=== PATIENT | female | born 1950 | race Hispanic/Latino ===

== ENCOUNTER 2020-03-04 09:18 | Emergency (ER) | payer MEDICAID ==
[2020-03-04 09:40] VITALS: BP 135/93
[2020-03-04 10:34] LABS: Bilirubin,Urine NEG (Negative); Blood,Urine NEG (Negative); Color,Urine Yellow (Yellow); Mucus,Urine FEW /HPF
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
[2020-03-04 12:47] LABS: Blood Urea Nitrogen 14 mg/dL (7-17); Calcium 9.6 mg/dL (8.4-10.2); Hemolysis Index 7
[2020-03-04 12:48] LABS: BUN/Creatinine Ratio 20
== END 2020-03-04 13:25 | disposition home or self-care (01) ==
LOC: ED 09:18
DX: N39.0 Urinary tract infection, site not specified (principal); R31.9 Hematuria, unspecified; F17.200 Nicotine dependence, unspecified, uncomplicated; Z98.890 Other specified postprocedural states; Z79.899 Other long term (current) drug therapy; Z88.8 Allergy status to other drugs, medicaments and biological substances
CPT/HCPCS: 36415; 80048; 81001; 87086; 99283

== ENCOUNTER 2020-04-12 10:11 | Emergency (ER) | payer MEDICARE ==
[2020-04-12 11:11] VITALS: BP 136/61
--- NOTE | 2020-04-12 11:11 | Emergency Department Report ---
Blank Doc - Documentation Documentation: 69-year-old female that presents with left hip pain and right shoulder pain. Also c/o UTI symptoms. This initial assessment/diagnostic orders/clinical plan/treatment(s) is/are subject to change based on patient's health status, clinical progression and re- assessment by fellow clinical providers in the ED. Further treatment and workup at subsequent clinical providers discretion. Patient/guardians urged not to elope from the ED as their condition may be serious if not clinically assessed and managed. Initial orders include: 1- Patient sent to [facility] for further evaluation and treatment 2- xrays 3- UA
--- NOTE | 2020-04-12 12:03 | XRay Report ---
RIGHT SHOULDER 4 VIEWS INDICATION / CLINICAL INFORMATION: right shoulder pain. COMPARISON: None available. FINDINGS: Reverse right shoulder arthroplasty with normal alignment. No other significant skeletal abnormality Signer Name: Fernando Glover MD FACAmie Signed: 04/12/2020 11:59 AM Workstation Name: [id number]
--- NOTE | 2020-04-12 12:05 | XRay Report ---
LEFT HIP 2 VIEWS INDICATION / CLINICAL INFORMATION: left hip pain. COMPARISON: None available. FINDINGS: Moderately advanced degenerative change in left hip joint with narrowing of the joint space, subchond ral cyst formation and osteophyte formation. No other significant skeletal abnormality. Signer Name: Fernando Glover MD FACAmie Signed: 04/12/2020 12:01 PM Workstation Name: [id number]
[2020-04-12] MEDS ORDERED: ACETAMINOPHEN W/CODEINE 300-30 MG TAB PO ONE (13:10)
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
== END 2020-04-12 13:29 | disposition home or self-care (01) ==
LOC: ED 10:11
DX: M25.511 Pain in right shoulder (principal); M54.5 Low back pain; M25.552 Pain in left hip; F17.200 Nicotine dependence, unspecified, uncomplicated; Z79.899 Other long term (current) drug therapy; Z90.710 Acquired absence of both cervix and uterus; Z98.890 Other specified postprocedural states; Z88.8 Allergy status to other drugs, medicaments and biological substances; Y08.89XA Assault by other specified means, initial encounter; Y93.89 Activity, other specified; Y92.89 Other specified places as the place of occurrence of the external cause; Y99.8 Other external cause status
CPT/HCPCS: 99283

== ENCOUNTER 2020-11-07 20:10 | Emergency (ER) | payer MEDICAID, MEDICARE ==
[2020-11-07 23:09] VITALS: BP 103/71
[2020-11-08] MEDS ORDERED: ACETAMINOPHEN 325 MG TAB PO ONE (00:06)
--- NOTE | 2020-11-08 00:45 | XRay Report ---
CHEST 1 VIEW INDICATION: COUGH; AMS. COMPARISON: None. FINDINGS: Support devices: None. Heart: Normal. Lungs/Pleura: No acute pulmonary or pleural findings. Healed lateral left lower rib fracture is noted. Reverse right shoulder arthroplasty is noted. IMPRESSION: 1. No acute findings. Signer Name: Vineet Thomas MD Signed: 11/08/2020 12:40 AM Workstation Name: [id number]
[2020-11-08 01:00] LABS: Basophils # (Auto) 0.1 K/mm3 (0.0-0.1); Basophils % (Auto) 1.2 % (0.0-1.8); Eosinophils # (Auto) 0.1 K/mm3 (0.0-0.4); Eosinophils % (Auto) 1.2 % (0.0-4.3); Hematocrit 39.5 % (30.3-42.9); Hemoglobin 13.5 gm/dl (10.1-14.3); Lymphocytes # (Auto) 3.4 K/mm3 (1.2-5.4); Lymphocytes % (Auto) 33.2 % (13.4-35.0); Mean Corpuscular HGB Conc 34 % (30-34); Mean Corpuscular Volume 96 fl (79-97); Platelet Count 277 K/mm3 (140-440); Red Blood Count 4.11 M/mm3 (3.65-5.03); Red Cell Distribution Width 14.8 % (13.2-15.2)
--- NOTE | 2020-11-08 01:07 | Cat Scan Report ---
CT HEAD WITHOUT CONTRAST INDICATION: AMS. TECHNIQUE: All CT scans at this location are performed using CT dose reduction for ALARA by means of automated e xposure control. COMPARISON: None available. FINDINGS: HEMORRHAGE: None. EXTRA-AXIAL SPACES: Normal in size and morphology for the patient's age. VENTRICULAR SYSTEM: Normal in size and morphology for the patient's age. BRAIN PARENCHYMA: No acute findings. There is mild diffuse atrophy. MIDLINE SHIFT OR HERNIATION: None. ORBITS: Normal as visualized. SOFT TISSUES OF HEAD: Normal. CALVARIUM: Normal. VISUALIZED PARANASAL SINUSES AND MASTOID AIR CELLS: There is mild mucosal thickening in the right max illary sinus. No air-fluid levels. Postsurgical changes are seen at the medial parra of the maxillary sinuses. ADDITIONAL FINDINGS: None. IMPRESSION: 1. No acute intracranial abnormality. Signer Name: Vineet Thomas MD Signed: 11/08/2020 1:03 AM Workstation Name: [id number]
[2020-11-08 01:17] LABS: Alanine Aminotransferase 12 units/L (7-56); Albumin 4.4 g/dL (3.9-5); BUN/Creatinine Ratio 19; Blood Urea Nitrogen 17 mg/dL (7-17); Calcium 9.1 mg/dL (8.4-10.2); Hemolysis Index 27
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
== END 2020-11-08 03:13 | disposition home or self-care (01) ==
LOC: ED 20:10
DX: S09.90XA Unspecified injury of head, initial encounter (principal); K08.89 Other specified disorders of teeth and supporting structures; F32.9 Major depressive disorder, single episode, unspecified; J44.9 Chronic obstructive pulmonary disease, unspecified; F03.90 Unspecified dementia, unspecified severity, without behavioral disturbance, psychotic disturbance, mood disturbance, and anxiety; F17.200 Nicotine dependence, unspecified, uncomplicated; Z98.890 Other specified postprocedural states; Z79.899 Other long term (current) drug therapy; Z88.8 Allergy status to other drugs, medicaments and biological substances; W19.XXXA Unspecified fall, initial encounter; Y93.89 Activity, other specified; Y92.89 Other specified places as the place of occurrence of the external cause; Y99.8 Other external cause status
CPT/HCPCS: 36415; 70450; 71045; 80053; 85025

== ENCOUNTER 2020-12-16 14:21 | Emergency (ER) | payer MEDICARE ==
[2020-12-16 15:41] LABS: Basophils # (Auto) 0.1 K/mm3 (0.0-0.1); Basophils % (Auto) 0.9 % (0.0-1.8); Eosinophils % (Auto) 0.2 % (0.0-4.3); Hematocrit 37.2 % (30.3-42.9); Hemoglobin 12.7 gm/dl (10.1-14.3); Lymphocytes # (Auto) 1.9 K/mm3 (1.2-5.4); Lymphocytes % (Auto) 28.2 % (13.4-35.0); Mean Corpuscular HGB Conc 34 % (30-34); Mean Corpuscular Volume 97 fl (79-97); Monocytes # (Auto) 0.5 K/mm3 (0.0-0.8); Monocytes % (Auto) 8.2 % (0.0-7.3); Platelet Count 243 K/mm3 (140-440); Red Blood Count 3.85 M/mm3 (3.65-5.03); Red Cell Distribution Width 14.2 % (13.2-15.2)
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
[2020-12-16 16:01] LABS: Alanine Aminotransferase 19 units/L (7-56); Albumin 4.3 g/dL (3.9-5); Blood Urea Nitrogen 13 mg/dL (7-17); Calcium 8.9 mg/dL (8.4-10.2); Hemolysis Index 5
[2020-12-16 16:02] LABS: BUN/Creatinine Ratio 22
[2020-12-16 16:30] LABS: Amphetamine Screen,Urine Negative; Benzodiazepines Screen,Urine Negative; Cocaine Screen,Urine Negative; Methadone Screen,Urine Negative; Opiate Screen,Urine Negative
[2020-12-16 16:32] LABS: Bacteria,Urine 1+ /HPF (Negative); Bilirubin,Urine NEG (Negative); Blood,Urine NEG (Negative); Color,Urine Amber (Yellow); Mucus,Urine FEW /HPF; Protein,Urine <15 mg/dL mg/dL (Negative)
[2020-12-16 16:41] LABS: Cannabinoid Screen,Urine Positive
[2020-12-16] MEDS ORDERED: POTASSIUM CHLORIDE ER 20 MEQ TAB PO ONE (16:41)
[2020-12-16] MEDS: POTASSIUM CHLORIDE ER 20 MEQ TAB PO SCH (22:10)
--- NOTE | 2020-12-17 10:30 | Consultation ---
History of Present Illness - Reason for Consult Consult date: 12/17/20 Reason for consult: paranoia - History of Present Psychiatric Illness Per ER Note: Chief complaint: "I know if I go back there that they are going to kill me." HPI: This is a 62-year-old female with history of dementia, anxiety disorder depression, breast cancer, chronic back pain who presents with paranoia and anxiety. She currently lives in a boarding house. She feels as if that something or someone at the boarding house is making her sick. Patient denies any physical complaints. According to electronic medical record, patient was evaluated emergency department. Her requested medication to address her dementia symptoms which included digging dirt outside and pulling carpet at the home. The patient was seen today, she is paranoid. The patient says she came here because she was sick and states "I'm now much sicker being here." She says "I'm losing weight because they are contaminating the food and the floors." She then says "just like you are poisoning everything." She says "I don't like filth." The patient says where she came from "was filth with roaches taking over your food." She also says she "smoked some crack about a week ago there." She verbalizes feeling depressed. The patient says "the police came and offered me to go to a correction but they will only keep me two days." PAST PSYCHIATRIC HISTORY Diagnoses:n/a Suicide attempts or Self-harm behavior: n/a Prior psychiatric hospitalizations: n/a Substance Abuse history: n/a Previous psychiatric medications tried: n/a Outpatient treatment: n/a PAST MEDICAL HISTORY: n/a Family Psychiatric History: None reported or documented SOCIAL HISTORY Marital Status: n/a Living Arrangements: homeless Employment Status: unemployed Access to guns/weapons: n/a Education:high school diploma History of Abuse: n/a Legal History: n/a REVIEW OF SYSTEMS ROS cannot be reliably obtained from the patient due to his mental state MENTAL STATUS EXAMINATION General Appearance and Behavior: Age appropriate, good hygiene, not wearing appropriate clothes, good eye contact, cooperative polite with questioning. Cooperation: Participating/engaged Psychomotor Behavior: Psychomotor agitation Mood: Good Affect and affective range: euthymic, euphoric Thought Process:Circumstantial, Illogical, Thought Content: Flight of ideas, Illogical, Grandiose, Speech: pressured, loud volume at times Intellectual Functioning: Average Suicidal Ideation: Denies SI Homicidal Ideation: Denies HIl Impulse Control: Impaired Insight and Judgment: Limited insight and judgment Memory: Normal, Attention: Divided attention impaired Orientation: Alert, oriented, Assessment and Plan (1) Dementia with Behavioral Disturbance Current Visit: Yes Status: Acute Treatment Plan MEDICATIONS: Risperidone 0.25mg po BID, Remeron 7.5mg po qhs Risks, benefits and alternatives of medications discussed with the patient, questions answered and consent obtained from patient. PSYCHOTHERAPY: Supportive psychotherapy provided MEDICAL: Per primary team DELIRIUM PRECAUTIONS: Please re-orient patient frequently, keep lights on during the day, and minimize benzodiazepines and opiates as these medications could worsen patient's confusion. CASER: DISPOSITION: Recommend acute inpatient [facility] Case discussed with Dr. Head who agrees with current disposition FOLLOW-UP: Will follow Thank you for the consult. Please contact with any questions and/or concerns. Medications and Allergies Allergies Allergy/AdvReac Type Severity Reaction Status Date / Time ketorolac [From Toradol] Allergy Hives Verified 12/16/20 15:42 loracarbef [From Lorabid] Allergy Hives Verified 12/16/20 15:42 pentazocine [From Talwin] Allergy Hives Verified 12/16/20 15:42 Home Medications Medication Instructions Recorded Confirmed Last Taken Type No Known Home Medications [No 12/16/20 12/16/20 Unknown History Reported Home Medications] Active Meds: Active Medications Potassium Chloride (Potassium Chloride Er 20 Meq Tab) 40 meq PO BID ALVARO Last Admin: 12/16/20 22:10 Dose: Not Given Documented by: Mental Status Exam - Vital signs Last Vital Signs Temp 98.0 F 12/17/20 08:15 Pulse 83 12/17/20 08:15 Resp 20 12/17/20 08:15 BP 129/77 12/17/20 08:15 Pulse Ox 97 12/17/20 08:15 Results Result Diagrams: 12/16/20 15:28 12/16/20 15:28 Abnormal lab results 12/16/20 12/16/20 12/16/20 Range/Units 15:28 15:28 15:28 MCH 33 H (28-32) pg [place] % (Auto) 8.2 H (0.0-7.3) % Potassium (3.6-5.0) mmol/L Salicylates < 0.3 L (2.8-20.0) mg/dL Acetaminophen 5.0 L (10.0-30.0) ug/mL 12/16/20 Range/Units 15:28 MCH (28-32) pg [place] % (Auto) (0.0-7.3) % Potassium 2.7 L* (3.6-5.0) mmol/L Salicylates (2.8-20.0) mg/dL Acetaminophen (10.0-30.0) ug/mL All other labs normal.
[2020-12-17] MEDS: POTASSIUM CHLORIDE ER 20 MEQ TAB PO SCH ×2 (10:45→22:22)
[2020-12-17] MEDS: risperiDONE 0.25 MG TAB PO SCH ×2 (11:10→22:23)
[2020-12-17 20:20] VITALS: BP 152/75
[2020-12-17] MEDS ORDERED: MIRTAZAPINE 15 MG TAB PO SCH (22:00)
== END 2020-12-17 22:23 | disposition other institution (70) ==
LOC: ED 14:21
DX: F23 Brief psychotic disorder (principal); J44.9 Chronic obstructive pulmonary disease, unspecified; F03.90 Unspecified dementia, unspecified severity, without behavioral disturbance, psychotic disturbance, mood disturbance, and anxiety; F17.200 Nicotine dependence, unspecified, uncomplicated; Z98.890 Other specified postprocedural states; Z88.8 Allergy status to other drugs, medicaments and biological substances
CPT/HCPCS: 36415; 80053; 80307; 80320; 81001; 84132; 85025; G0480; U0003

== ENCOUNTER 2020-12-17 20:30 | Inpatient (IN) | payer MEDICARE ==
[2020-12-17 23:33] LABS: Basophils # (Auto) 0.1 K/mm3 (0.0-0.1); Eosinophils # (Auto) 0.1 K/mm3 (0.0-0.4); Eosinophils % (Auto) 1.5 % (0.0-4.3); Hematocrit 36.4 % (30.3-42.9); Hemoglobin 12.3 gm/dl (10.1-14.3); Lymphocytes # (Auto) 2.1 K/mm3 (1.2-5.4); Lymphocytes % (Auto) 37.7 % (13.4-35.0); Mean Corpuscular HGB Conc 34 % (30-34); Mean Corpuscular Volume 98 fl (79-97); Monocytes # (Auto) 0.4 K/mm3 (0.0-0.8); Monocytes % (Auto) 7.6 % (0.0-7.3); Platelet Count 222 K/mm3 (140-440); Red Blood Count 3.72 M/mm3 (3.65-5.03)
[2020-12-17 23:55] LABS: Alanine Aminotransferase 14 units/L (7-56); Albumin 3.9 g/dL (3.9-5); Blood Urea Nitrogen 13 mg/dL (7-17); Calcium 9.3 mg/dL (8.4-10.2); Hemolysis Index 2
[2020-12-18 00:13] LABS: BUN/Creatinine Ratio 19
--- NOTE | 2020-12-18 10:40 | History and Physical Report ---
GP History & Physical - History of Present Illness Date of admission: 12/17/20 Date of Examination: 12/18/20 Reason for Admission: Failure of Outpatient Treatment, Unable to care for self History of Present Illness: Per ER Note: Chief complaint: "I know if I go back there that they are going to kill me." HPI: This is a 62-year-old female with history of dementia, anxiety disorder depression, breast cancer, chronic back pain who presents with paranoia and anxiety. She currently lives in a boarding house. She feels as if that something or someone at the boarding house is making her sick. Patient denies any physical complaints. According to electronic medical record, patient was evaluated emergency department. Her requested medication to address her dementia symptoms which included digging dirt outside and pulling carpet at the home. Laura Suarez is a patient I first rounded on in the ER. At that time the patient was paranoid and disorganized thoughts, and thought people were poisoning her food and the floors. During my assessment today, the patient says she actually "feels better." She is still paranoids and delusional. She is talking about the "filth, trash, and contamination" of the place she was living. She also asks about the food here and what's in it. The patient denies SI/HI or hallucinations of any kind. PAST PSYCHIATRIC HISTORY Diagnoses: Denies Suicide attempts or Self-harm behavior: Denies Prior psychiatric hospitalizations: Denies Substance Abuse history: States she tried crack Previous psychiatric medications tried: could not recall Outpatient treatment: yes PAST MEDICAL HISTORY: None reported Family Psychiatric History: None reported or documented SOCIAL HISTORY Marital Status: Single Living Arrangements: senior living Employment Status: disabled Access to guns/weapons: denies Education:high school diploma History of Abuse: Denies Legal History: Denies REVIEW OF SYSTEMS Constitutional: Negative for weight loss ENT: Negative for stridor Respiratory: Negative for cough or hemoptysis All other systems reviewed and are negative MENTAL STATUS EXAMINATION General Appearance and Behavior: Age appropriate, good hygiene, not wearing appropriate clothes, good eye contact, cooperative polite with questioning. Cooperation: Participating/engaged Psychomotor Behavior: Psychomotor agitation Mood: Good Affect and affective range: euthymic, euphoric Thought Process:Circumstantial, Illogical, Thought Content: Flight of ideas, Illogical, Grandiose, Speech: pressured, loud volume at times Intellectual Functioning: Average Suicidal Ideation: Denies SI Homicidal Ideation: Denies HIl Impulse Control: Impaired Insight and Judgment: Limited insight and judgment Memory: Normal, Attention: Divided attention impaired Orientation: Alert, oriented, Assessment and Plan (1) Dementia with Behavioral Disturbance Current Visit: Yes Status: Acute Treatment Plan Patient admitted for inpatient psychiatric evaluation, medication adjustment and close monitoring The patient's behavior, mood, sleep and appetite will be closely monitored. Patient enrolled in individual and group therapeutic sessions and encouraged to attend. Patient provided with a safe and structured environment. Patient's physical health needs will be addressed by the Hospitalist. Hospitalist Consulted Labs including CBC, CMP, Lipid profile and Hemoglobin A1C levels ordered for baseline reference Social Assessment will be completed and the Rn Vascular will work with patient and family to ensure a suitable and safe disposition Medication adjustment will be made as clinically indicated Continued home medications Started meds that was started in ER Remeron 7.5 qhs Risperidone 0.25mg po BID Usual Wellness [employer]/Preservation: - Start Trazodone 50 mg po QHS & 50 mg po QHS PRN between 10 PM & 2 AM for insomnia - Start Melatonin 5 mg po QHS to promote circadian rhythm - Start [place]-3 for brain health, reduce impulsivity, and as adjunctive treatment for mood disorder, continue upon discharge given overall benefits. - Start B1 prophylaxis with 200 mg po for 5 days The patient agreed on the treatment plan, understood the risk, benefit, alternative treatment, potential consequence of no treatment, and gave informed consent. Estimated days: 5 Post hospital care: primary care provider, psychiatric provider Legal Status: Voluntary Reaction to Hospitalization: Accepting Medications and Allergies Allergies Allergy/AdvReac Type Severity Reaction Status Date / Time ketorolac [From Toradol] Allergy Hives Verified 12/16/20 15:42 loracarbef [From Lorabid] Allergy Hives Verified 12/16/20 15:42 pentazocine [From Talwin] Allergy Hives Verified 12/16/20 15:42 Home Medications Medication Instructions Recorded Confirmed Last Taken Type Cyclobenzaprine [Flexeril 10 MG 5 mg PO DAILY PRN 12/18/20 12/18/20 Unknown History TAB] Divalproex Dr [Tato Olmos] 500 mg PO DAILY 12/18/20 12/18/20 Unknown History Meloxicam [Mobic] 7.5 mg PO DAILY PRN 12/18/20 12/18/20 Unknown History Mirtazapine 7.5 mg PO HS 12/18/20 12/18/20 Unknown History hydroCHLOROthiazide 12.5 mg PO DAILY 12/18/20 12/18/20 Unknown History [Hydrochlorothiazide] risperiDONE [RisperDAL] 0.25 mg PO BID 12/18/20 12/18/20 Unknown History Results - Results Labs/Vitals: Laboratory Last Values WBC 5.7 K/mm3 (4.5-11.0) 12/17/20 23:10 RBC 3.72 M/mm3 (3.65-5.03) 12/17/20 23:10 Hgb 12.3 gm/dl (10.1-14.3) 12/17/20 23:10 Hct 36.4 % (30.3-42.9) 12/17/20 23:10 MCV 98 fl (79-97) H 12/17/20 23:10 MCH 33 pg (28-32) H 12/17/20 23:10 MCHC 34 % (30-34) 12/17/20 23:10 RDW 15.0 % (13.2-15.2) 12/17/20 23:10 Plt Count 222 K/mm3 (140-440) 12/17/20 23:10 Lymph % (Auto) 37.7 % (13.4-35.0) H 12/17/20 23:10 [place] % (Auto) 7.6 % (0.0-7.3) H 12/17/20 23:10 Eos % (Auto) 1.5 % (0.0-4.3) 12/17/20 23:10 Baso % (Auto) 1.0 % (0.0-1.8) 12/17/20 23:10 Lymph # (Auto) 2.1 K/mm3 (1.2-5.4) 12/17/20 23:10 [place] # (Auto) 0.4 K/mm3 (0.0-0.8) 12/17/20 23:10 Eos # (Auto) 0.1 K/mm3 (0.0-0.4) 12/17/20 23:10 Baso # (Auto) 0.1 K/mm3 (0.0-0.1) 12/17/20 23:10 Seg Neutrophils % 52.2 % (40.0-70.0) 12/17/20 23:10 Seg Neutrophils # 3.0 K/mm3 (1.8-7.7) 12/17/20 23:10 Sodium 146 mmol/L (137-145) H 12/17/20 23:10 Potassium 3.5 mmol/L (3.6-5.0) L 12/17/20 23:10 Chloride 106.8 mmol/L (98-107) 12/17/20 23:10 Carbon Dioxide 31 mmol/L (22-30) H 12/17/20 23:10 Anion Gap 12 mmol/L 12/17/20 23:10 BUN 13 mg/dL (7-17) 12/17/20 23:10 Creatinine 0.7 mg/dL (0.6-1.2) 12/17/20 23:10 Estimated GFR > 60 ml/min 12/17/20 23:10 BUN/Creatinine Ratio 19 % 12/17/20 23:10 Glucose 130 mg/dL (65-100) H 12/17/20 23:10 POC Glucose 119 mg/dL (70-105) H 12/18/20 00:18 Hemoglobin A1c 5.2 % (4-6) 12/17/20 23:10 Calcium 9.3 mg/dL (8.4-10.2) 12/17/20 23:10 Total Bilirubin 0.20 mg/dL (0.1-1.2) 12/17/20 23:10 AST 19 units/L (5-40) 12/17/20 23:10 ALT 14 units/L (7-56) 12/17/20 23:10 Alkaline Phosphatase 90 units/L (35-129) 12/17/20 23:10 Total Protein 6.3 g/dL (6.3-8.2) 12/17/20 23:10 Albumin 3.9 g/dL (3.9-5) 12/17/20 23:10 Albumin/Globulin Ratio 1.6 % 12/17/20 23:10 TSH 0.691 mlU/mL (0.270-4.200) 12/17/20 23:10 Valproic Acid < 2.8 ug/mL (50-100) L 12/17/20 23:10 Last Vital Signs Temp 98.5 F 12/18/20 08:49 Pulse 85 12/18/20 08:49 Resp 16 12/18/20 08:49 BP 103/61 12/18/20 08:49 Pulse Ox 96 12/18/20 08:49 Physical Examination - Constitutional Vitals: Vital Signs Temp Pulse Resp BP Pulse Ox 98.5 F 85 16 103/61 96 12/18/20 08:49 12/18/20 08:49 12/18/20 08:49 12/18/20 08:49 12/18/20 08:49 Temperature -Last 24 Hours Temperature 98.5 F Temperature 98.4 F Mental Status Exam - Vital signs Last Vital Signs Temp 98.5 F 12/18/20 08:49 Pulse 85 12/18/20 08:49 Resp 16 12/18/20 08:49 BP 103/61 12/18/20 08:49 Pulse Ox 96 12/18/20 08:49 Physician Certification - Certification Statement Physician Certification Statement: This is an acknowledgement statement that LAURA SUAREZ is a 70 year old F who requires inpatient psychiatric admission for treatment which could reasonably be expected to improve the patient's condition for Estimated period of time patient will need to remain in the hospital: [ ] Plan for post-hospital care: [ ]
[2020-12-18] MEDS ORDERED: MELOXICAM 7.5 MG TAB PO PRN (11:00)
[2020-12-18] MEDS ORDERED: hydroCHLOROthiazide 12.5 MG CAP PO SCH (11:00)
[2020-12-18] MEDS ORDERED: CYCLOBENZAPRINE 10 MG TAB PO PRN (11:00)
[2020-12-18] MEDS: DIVALPROEX DR 500 MG TAB PO SCH (12:00)
[2020-12-18] MEDS: risperiDONE 0.25 MG TAB PO SCH ×2 (12:00→21:31)
[2020-12-18] MEDS ORDERED: POTASSIUM CHLORIDE ER 20 MEQ TAB PO ONE (20:59)
--- NOTE | 2020-12-18 21:01 | Consultation ---
History of Present Illness - Reason for Consult Consult date: 12/18/20 Medical management Requesting physician: KAYY GUERRERO - History of Present Illness 62-year-old female with history of severe anxiety disorder, depression, hypertension, low back pain and neck pain comes in for severe anxiety and paranoia. Patient lives in a boarding home. No physical complaints other than lower back pain. Her has requested medications for her dementia and severe anxiety and paranoia. Patient was apparently digging dirt outside and pulling carpet at home. Patient feels better today and less paranoia. No suicidal or homicidal thoughts Past History Past Medical History: hypertension, other (Psychosis and generalized anxiety disorder, low back pain and dementia) Past Surgical History: No surgical history Social history: lives with family, full code Family history: hypertension Medications and Allergies Allergies Allergy/AdvReac Type Severity Reaction Status Date / Time ketorolac [From Toradol] Allergy Hives Verified 12/16/20 15:42 loracarbef [From Lorabid] Allergy Hives Verified 12/16/20 15:42 pentazocine [From Talwin] Allergy Hives Verified 12/16/20 15:42 Home Medications Medication Instructions Recorded Confirmed Last Taken Type Cyclobenzaprine [Flexeril 10 MG 5 mg PO DAILY PRN 12/18/20 12/18/20 Unknown History TAB] Divalproex Dr [Depakote Dr] 500 mg PO DAILY 12/18/20 12/18/20 Unknown History Meloxicam [Mobic] 7.5 mg PO DAILY PRN 12/18/20 12/18/20 Unknown History Mirtazapine 7.5 mg PO HS 12/18/20 12/18/20 Unknown History hydroCHLOROthiazide 12.5 mg PO DAILY 12/18/20 12/18/20 Unknown History [Hydrochlorothiazide] risperiDONE [RisperDAL] 0.25 mg PO BID 12/18/20 12/18/20 Unknown History Active Meds: Active Medications Cyclobenzaprine HCl (Cyclobenzaprine 10 Mg Tab) 5 mg PO DAILY PRN PRN Reason: Muscle Spasm Divalproex Sodium (Divalproex Dr 500 Mg Tab) 500 mg PO DAILY [facility] Last Admin: 12/18/20 12:00 Dose: 500 mg Documented by: Hydrochlorothiazide (Hydrochlorothiazide 12.5 Mg Cap) 12.5 mg PO DAILY [facility] Last Admin: 12/18/20 12:00 Dose: 12.5 mg Documented by: Meloxicam (Meloxicam 7.5 Mg Tab) 7.5 mg PO DAILY PRN PRN Reason: Muscle Spasm Mirtazapine (Mirtazapine 15 Mg Tab) 7.5 mg PO QHS [facility] Risperidone (Risperidone 0.25 Mg Tab) 0.25 mg PO BID [facility] Last Admin: 12/18/20 12:00 Dose: 0.25 mg Documented by: Review of Systems All systems: negative Psychiatric: anxiety, paranoia Endocrine: no cold intolerance, no heat intolerance, no polyphagia, no excessive thirst, no polydipsia Hematologic/Lymphatic: no easy bruising, no easy bleeding Allergic/Immunologic: no urticaria, no allergic rhinitis, no wheezing Exam - Constitutional Vitals: Temp Pulse Resp BP Pulse Ox 98.5 F 85 16 103/61 96 12/18/20 08:49 12/18/20 08:49 12/18/20 08:49 12/18/20 08:49 12/18/20 08:49 General appearance: Present: no acute distress, well-nourished - EENT Eyes: Present: PERRL ENT: hearing intact, clear oral mucosa - Neck Neck: Present: supple, normal ROM - Respiratory Respiratory effort: normal Respiratory: bilateral: CTA - Cardiovascular Heart rate: 78 Rhythm: regular Heart Sounds: Present: S1 & S2. Absent: rub, click - Extremities Extremities: no ischemia, pulses intact, pulses symmetrical, No edema Peripheral Pulses: within normal limits - Abdominal General gastrointestinal: Present: soft, non-tender, non-distended, normal bowel sounds Female genitourinary: Present: normal - Rectal Rectal Exam: deferred - Integumentary Integumentary: Present: clear, warm, dry - Musculoskeletal Musculoskeletal: gait normal, strength equal bilaterally - Psychiatric Psychiatric: appropriate mood/affect, intact judgment & insight - Neurologic Neurologic: CNII-XII intact, moves all extremities - Allied Health Allied health notes reviewed: nursing Results - Labs CBC & Chem 7: 12/17/20 23:10 12/17/20 23:10 Labs: Abnormal lab results 12/17/20 12/17/20 12/17/20 Range/Units 23:10 23:10 23:10 MCV 98 H (79-97) fl MCH 33 H (28-32) pg Lymph % (Auto) 37.7 H (13.4-35.0) % [place] % (Auto) 7.6 H (0.0-7.3) % Sodium 146 H (137-145) mmol/L Potassium 3.5 L (3.6-5.0) mmol/L Carbon Dioxide 31 H (22-30) mmol/L Glucose 130 H (65-100) mg/dL POC Glucose (70-105) mg/dL Valproic Acid < 2.8 L (50-100) ug/mL 12/18/20 Range/Units 00:18 MCV (79-97) fl MCH (28-32) pg Lymph % (Auto) (13.4-35.0) % [place] % (Auto) (0.0-7.3) % Sodium (137-145) mmol/L Potassium (3.6-5.0) mmol/L Carbon Dioxide (22-30) mmol/L Glucose (65-100) mg/dL POC Glucose 119 H (70-105) mg/dL Valproic Acid (50-100) ug/mL Short CBC 12/17/20 Range/Units 23:10 WBC 5.7 (4.5-11.0) K/mm3 Hgb 12.3 (10.1-14.3) gm/dl Hct 36.4 (30.3-42.9) % Plt Count 222 (140-440) K/mm3 BMP 12/17/20 23:10 Sodium 146 H Potassium 3.5 L Chloride 106.8 Carbon Dioxide 31 H BUN 13 Creatinine 0.7 Glucose 130 H Calcium 9.3 Liver Function 12/17/20 Range/Units 23:10 Total Bilirubin 0.20 (0.1-1.2) mg/dL AST 19 (5-40) units/L ALT 14 (7-56) units/L Alkaline Phosphatase 90 (35-129) units/L Albumin 3.9 (3.9-5) g/dL Assessment and Plan - Patient Problems (1) Hypertension Current Visit: Yes Status: Chronic Qualifiers: Hypertension type: essential hypertension Qualified Code(s): I10 - Essential (primary) hypertension Plan to address problem: We will stop the hydrochlorothiazide and initiate losartan 25 once a day Hydrochlorothiazide is causing her hypernatremia and hypokalemia (2) Hypernatremia Current Visit: Yes Status: Acute Plan to address problem: Stop the hydrochlorothiazide Hyponatremia should correct We will repeat the BMP on 12/20/2020 (3) Hypokalemia Current Visit: Yes Status: Acute Plan to address problem: Supplemented (4) Generalized anxiety disorder Current Visit: Yes Status: Chronic Plan to address problem: Defer to psychiatry (5) Nicotine dependence Current Visit: Yes Status: Chronic Qualifiers: Nicotine product type: cigarettes Plan to address problem: Patient counseled and started on NicoDerm patch 14 mg/day (6) DVT prophylaxis Current Visit: Yes Status: Acute Plan to address problem: On heparin and GI prophylaxis
[2020-12-18] MEDS: MIRTAZAPINE 15 MG TAB PO SCH (21:30)
[2020-12-18] MEDS ORDERED: NON-FORMULARY EACH (Mirtazapine [Mirtazapine] 7.5 MG Tablet) PO SCH (22:00)
[2020-12-19] MEDS ORDERED: POTASSIUM CHLORIDE ER 20 MEQ TAB PO ONE (09:00)
[2020-12-19] MEDS: NICOTINE 14 MG/24 HR PATCH TD SCH ×2 (09:08→21:23)
[2020-12-19] MEDS: DIVALPROEX DR 500 MG TAB PO SCH (09:08)
[2020-12-19] MEDS: risperiDONE 0.25 MG TAB PO SCH ×2 (09:08→21:11)
[2020-12-19] MEDS: HEPARIN 5,000 UNIT/1 ML VIAL SUB-Q SCH ×3 (09:10→21:14)
[2020-12-19] MEDS: LOSARTAN 25 MG TAB PO SCH ×2 (09:24→10:11)
--- NOTE | 2020-12-19 10:12 | Progress Note ---
Subjective Date of service: 12/19/20 Principal diagnosis: dementia w/behaviroal disturbance Subjective Comment: Per Nurse Note: Last evening the patient stayed in the activity room interacting with peers. She presents as mildly confused. She smiles with interactions. Patient speaks with [id number]. She denies si/hi/ah/vh. Her appetite is fair. She was medication compliant. Overnight patient rested quietly. She presents as sleeping 8 hours. Will continue to monitor patient for safety. The patient was seen today. She says she can't go back to the "filthy place she was at." She denies SI/HI or delusions. She is talking about the filth and the food being contaminated at the other place. REVIEW OF SYSTEMS Constitutional: Negative for weight loss ENT: Negative for stridor Respiratory: Negative for cough or hemoptysis All other systems reviewed and are negative MENTAL STATUS EXAMINATION General Appearance and Behavior: Age appropriate, good hygiene, not wearing appropriate clothes, good eye contact, cooperative polite with questioning. Cooperation: Participating/engaged Psychomotor Behavior: Psychomotor agitation Mood: Good Affect and affective range: euthymic, euphoric Thought Process:Circumstantial, Illogical, Thought Content: Flight of ideas, Illogical, Grandiose, Speech: pressured, loud volume at times Intellectual Functioning: Average Suicidal Ideation: Denies SI Homicidal Ideation: Denies HIl Impulse Control: Impaired Insight and Judgment: Limited insight and judgment Memory: Normal, Attention: Divided attention impaired Orientation: Alert, oriented, Assessment and Plan (1) Dementia with Behavioral Disturbance Current Visit: Yes Status: Acute Treatment Plan Patient admitted for inpatient psychiatric evaluation, medication adjustment and close monitoring The patient's behavior, mood, sleep and appetite will be closely monitored. Patient enrolled in individual and group therapeutic sessions and encouraged to attend. Patient provided with a safe and structured environment. Patient's physical health needs will be addressed by the Hospitalist. Hospitalist Consulted Labs including CBC, CMP, Lipid profile and Hemoglobin A1C levels ordered for baseline reference Social Assessment will be completed and the Cart Pusher will work with patient and family to ensure a suitable and safe disposition Medication adjustment will be made as clinically indicated Increase Risperidone 0.5mg po BID Usual Wellness Yazidism/Preservation: - Start Trazodone 50 mg po QHS & 50 mg po QHS PRN between 10 PM & 2 AM for insomnia - Start Melatonin 5 mg po QHS to promote circadian rhythm - Start [place]-3 for brain health, reduce impulsivity, and as adjunctive treatm ent for mood disorder, continue upon discharge given overall benefits. - Start B1 prophylaxis with 200 mg po for 5 days The patient agreed on the treatment plan, understood the risk, benefit, altern ative treatment, potential consequence of no treatment, and gave informed consent. Estimated days: 5 Post hospital care: primary care provider, psychiatric provider Medications and Allergies Allergies Allergy/AdvReac Type Severity Reaction Status Date / Time ketorolac [From Toradol] Allergy Hives Verified 12/16/20 15:42 loracarbef [From Lorabid] Allergy Hives Verified 12/16/20 15:42 pentazocine [From Talwin] Allergy Hives Verified 12/16/20 15:42 Home Medications Medication Instructions Recorded Confirmed Last Taken Type Cyclobenzaprine [Flexeril 10 MG 5 mg PO DAILY PRN 12/18/20 12/18/20 Unknown History TAB] Divalproex Dr [Depakote Dr] 500 mg PO DAILY 12/18/20 12/18/20 Unknown History Meloxicam [Mobic] 7.5 mg PO DAILY PRN 12/18/20 12/18/20 Unknown History Mirtazapine 7.5 mg PO HS 12/18/20 12/18/20 Unknown History hydroCHLOROthiazide 12.5 mg PO DAILY 12/18/20 12/18/20 Unknown History [Hydrochlorothiazide] risperiDONE [RisperDAL] 0.25 mg PO BID 12/18/20 12/18/20 Unknown History Active Meds: Active Medications Cyclobenzaprine HCl (Cyclobenzaprine 10 Mg Tab) 5 mg PO DAILY PRN PRN Reason: Muscle Spasm Divalproex Sodium (Divalproex Dr 500 Mg Tab) 500 mg PO DAILY [facility] Last Admin: 12/19/20 09:08 Dose: 500 mg Documented by: Heparin Sodium (Porcine) (Heparin 5,000 Unit/1 Ml Vial) 5,000 unit SUB-Q Q12HR [facility] Last Admin: 12/19/20 09:10 Dose: 5,000 unit Documented by: Losartan Potassium (Losartan 25 Mg Tab) 25 mg PO QDAY [facility] Last Admin: 12/19/20 09:24 Dose: 25 mg Documented by: Meloxicam (Meloxicam 7.5 Mg Tab) 7.5 mg PO DAILY PRN PRN Reason: Muscle Spasm Mirtazapine (Mirtazapine 15 Mg Tab) 7.5 mg PO QHS [facility] Last Admin: 12/18/20 21:30 Dose: 7.5 mg Documented by: Nicotine (Nicotine 14 Mg/24 Hr Patch) 14 mg TD QDAY@2100 [facility] Last Admin: 12/19/20 09:08 Dose: 14 mg Documented by: Risperidone (Risperidone 0.25 Mg Tab) 0.25 mg PO BID [facility] Last Admin: 12/19/20 09:08 Dose: 0.25 mg Documented by: Results - Results Labs/Vitals: Laboratory Last Values WBC 5.7 K/mm3 (4.5-11.0) 12/17/20 23:10 RBC 3.72 M/mm3 (3.65-5.03) 12/17/20 23:10 Hgb 12.3 gm/dl (10.1-14.3) 12/17/20 23:10 Hct 36.4 % (30.3-42.9) 12/17/20 23:10 MCV 98 fl (79-97) H 12/17/20 23:10 MCH 33 pg (28-32) H 12/17/20 23:10 MCHC 34 % (30-34) 12/17/20 23:10 RDW 15.0 % (13.2-15.2) 12/17/20 23:10 Plt Count 222 K/mm3 (140-440) 12/17/20 23:10 Lymph % (Auto) 37.7 % (13.4-35.0) H 12/17/20 23:10 [place] % (Auto) 7.6 % (0.0-7.3) H 12/17/20 23:10 Eos % (Auto) 1.5 % (0.0-4.3) 12/17/20 23:10 Baso % (Auto) 1.0 % (0.0-1.8) 12/17/20 23:10 Lymph # (Auto) 2.1 K/mm3 (1.2-5.4) 12/17/20 23:10 [place] # (Auto) 0.4 K/mm3 (0.0-0.8) 12/17/20 23:10 Eos # (Auto) 0.1 K/mm3 (0.0-0.4) 12/17/20 23:10 Baso # (Auto) 0.1 K/mm3 (0.0-0.1) 12/17/20 23:10 Seg Neutrophils % 52.2 % (40.0-70.0) 12/17/20 23:10 Seg Neutrophils # 3.0 K/mm3 (1.8-7.7) 12/17/20 23:10 Sodium 146 mmol/L (137-145) H 12/17/20 23:10 Potassium 3.5 mmol/L (3.6-5.0) L 12/17/20 23:10 Chloride 106.8 mmol/L (98-107) 12/17/20 23:10 Carbon Dioxide 31 mmol/L (22-30) H 12/17/20 23:10 Anion Gap 12 mmol/L 12/17/20 23:10 BUN 13 mg/dL (7-17) 12/17/20 23:10 Creatinine 0.7 mg/dL (0.6-1.2) 12/17/20 23:10 Estimated GFR > 60 ml/min 12/17/20 23:10 BUN/Creatinine Ratio 19 % 12/17/20 23:10 Glucose 130 mg/dL (65-100) H 12/17/20 23:10 POC Glucose 119 mg/dL (70-105) H 12/18/20 00:18 Hemoglobin A1c 5.2 % (4-6) 12/17/20 23:10 Calcium 9.3 mg/dL (8.4-10.2) 12/17/20 23:10 Total Bilirubin 0.20 mg/dL (0.1-1.2) 12/17/20 23:10 AST 19 units/L (5-40) 12/17/20 23:10 ALT 14 units/L (7-56) 12/17/20 23:10 Alkaline Phosphatase 90 units/L (35-129) 12/17/20 23:10 Total Protein 6.3 g/dL (6.3-8.2) 12/17/20 23:10 Albumin 3.9 g/dL (3.9-5) 12/17/20 23:10 Albumin/Globulin Ratio 1.6 % 12/17/20 23:10 TSH 0.691 mlU/mL (0.270-4.200) 12/17/20 23:10 Valproic Acid < 2.8 ug/mL (50-100) L 12/17/20 23:10 Last Vital Signs Temp 98.7 F 12/18/20 19:42 Pulse 103 H 12/19/20 09:24 Resp 18 12/18/20 19:42 BP 139/86 12/19/20 09:24 Pulse Ox 97 12/18/20 19:42
[2020-12-19] MEDS: MIRTAZAPINE 15 MG TAB PO SCH (21:11)
[2020-12-20 08:38] LABS: Blood Urea Nitrogen 18 mg/dL (7-17); Calcium 9.1 mg/dL (8.4-10.2); Hemolysis Index 7
[2020-12-20 08:42] LABS: BUN/Creatinine Ratio 26
--- NOTE | 2020-12-20 10:00 | Progress Note ---
Subjective Date of service: 12/20/20 Principal diagnosis: dementia w/behaviroal disturbance Subjective Comment: Per Nurse Note:pt spent last evening in activity room interacting appropriately with peers, calm and cooperative, alert and orientedx3, able to make needs known, flight affect, stable mood, medication compliant, good appetite, no distress noted, will continue to monitor for safety. The patient was seen today. She is presenting much better and appears more stable with her mental health. She is complaining about an upset stomach and pain in her back. She denies SI/HI or hallucinations of any kind. When asking the patient says "never." The nurse during treatment team did report at times the patient was a little delusional. Reason for continued inpatient treatment: The patient is presenting much better and does not appear to be a threat to herself. Will continue to monitor her overnight. The patient will be discharge home tomorrow if night uneventful. REVIEW OF SYSTEMS Constitutional: Negative for weight loss ENT: Negative for stridor Respiratory: Negative for cough or hemoptysis All other systems reviewed and are negative MENTAL STATUS EXAMINATION General Appearance and Behavior: Age appropriate, good hygiene, not wearing appropriate clothes, good eye contact, cooperative polite with questioning. Cooperation: Participating/engaged Psychomotor Behavior: Psychomotor agitation Mood: "not good" Affect and affective range: euthymic Thought Process: Circumstantial Thought Content: None Speech: Normal tone and pace Intellectual Functioning: Average Suicidal Ideation: Denies SI Homicidal Ideation: Denies HI Impulse Control: Impaired Insight and Judgment: Limited insight and judgment Memory: Normal, Attention: Divided attention impaired Orientation: Alert, oriented, Assessment and Plan (1) Dementia with Behavioral Disturbance Current Visit: Yes Status: Acute Treatment Plan Patient admitted for inpatient psychiatric evaluation, medication adjustment and close monitoring The patient's behavior, mood, sleep and appetite will be closely monitored. Patient enrolled in individual and group therapeutic sessions and encouraged to attend. Patient provided with a safe and structured environment. Patient's physical health needs will be addressed by the Hospitalist. Hospitalist Consulted Labs including CBC, CMP, Lipid profile and Hemoglobin A1C levels ordered for baseline reference Social Assessment will be completed and the Heel Lining Paster will work with patient and family to ensure a suitable and safe disposition Medication adjustment will be made as clinically indicated Increase Risperidone 0.5mg po BID yesterday No changes today Usual Wellness Hoahaoism/Preservation: - Start Trazodone 50 mg po QHS & 50 mg po QHS PRN between 10 PM & 2 AM for insomnia - Start Melatonin 5 mg po QHS to promote circadian rhythm - Start [place]-3 for brain health, reduce impulsivity, and as adjunctive treatment for mood disorder, continue upon discharge given overall benefits. - Start B1 prophylaxis with 200 mg po for 5 days The patient agreed on the treatment plan, understood the risk, benefit, alternative treatment, potential consequence of no treatment, and gave informed consent. Estimated days: 4 Post hospital care: primary care provider, psychiatric provider Medications and Allergies Allergies Allergy/AdvReac Type Severity Reaction Status Date / Time ketorolac [From Toradol] Allergy Hives Verified 12/16/20 15:42 loracarbef [From Lorabid] Allergy Hives Verified 12/16/20 15:42 pentazocine [From Talwin] Allergy Hives Verified 12/16/20 15:42 Home Medications Medication Instructions Recorded Confirmed Last Taken Type Cyclobenzaprine [Flexeril 10 MG 5 mg PO DAILY PRN 12/18/20 12/18/20 Unknown Hist ory TAB] Divalproex Dr [Depakote Dr] 500 mg PO DAILY 12/18/20 12/18/20 Unknown History Meloxicam [Mobic] 7.5 mg PO DAILY PRN 12/18/20 12/18/20 Unknown History Mirtazapine 7.5 mg PO HS 12/18/20 12/18/20 Unknown History hydroCHLOROthiazide 12.5 mg PO DAILY 12/18/20 12/18/20 Unknown History [Hydrochlorothiazide] risperiDONE [RisperDAL] 0.25 mg PO BID 12/18/20 12/18/20 Unknown History Active Meds: Active Medications Cyclobenzaprine HCl (Cyclobenzaprine 10 Mg Tab) 5 mg PO DAILY PRN PRN Reason: Muscle Spasm Divalproex Sodium (Divalproex Dr 500 Mg Tab) 500 mg PO DAILY [facility] Last Admin: 12/19/20 09:08 Dose: 500 mg Documented by: Heparin Sodium (Porcine) (Heparin 5,000 Unit/1 Ml Vial) 5,000 unit SUB-Q Q12HR [facility] Last Admin: 12/19/20 21:14 Dose: Not Given Documented by: Losartan Potassium (Losartan 25 Mg Tab) 25 mg PO QDAY [facility] Last Admin: 12/19/20 10:11 Dose: 25 mg Documented by: Meloxicam (Meloxicam 7.5 Mg Tab) 7.5 mg PO DAILY PRN PRN Reason: Muscle Spasm Mirtazapine (Mirtazapine 15 Mg Tab) 7.5 mg PO QHS [facility] Last Admin: 12/19/20 21:11 Dose: 7.5 mg Documented by: Nicotine (Nicotine 14 Mg/24 Hr Patch) 14 mg TD QDAY [facility] Risperidone (Risperidone 0.25 Mg Tab) 0.5 mg PO BID [facility] Last Admin: 12/19/20 21:11 Dose: 0.5 mg Documented by: Results - Results Labs/Vitals: Laboratory Last Values WBC 5.7 K/mm3 (4.5-11.0) 12/17/20 23:10 RBC 3.72 M/mm3 (3.65-5.03) 12/17/20 23:10 Hgb 12.3 gm/dl (10.1-14.3) 12/17/20 23:10 Hct 36.4 % (30.3-42.9) 12/17/20 23:10 MCV 98 fl (79-97) H 12/17/20 23:10 MCH 33 pg (28-32) H 12/17/20 23:10 MCHC 34 % (30-34) 12/17/20 23:10 RDW 15.0 % (13.2-15.2) 12/17/20 23:10 Plt Count 222 K/mm3 (140-440) 12/17/20 23:10 Lymph % (Auto) 37.7 % (13.4-35.0) H 12/17/20 23:10 [place] % (Auto) 7.6 % (0.0-7.3) H 12/17/20 23:10 Eos % (Auto) 1.5 % (0.0-4.3) 12/17/20 23:10 Baso % (Auto) 1.0 % (0.0-1.8) 12/17/20 23:10 Lymph # (Auto) 2.1 K/mm3 (1.2-5.4) 12/17/20 23:10 [place] # (Auto) 0.4 K/mm3 (0.0-0.8) 12/17/20 23:10 Eos # (Auto) 0.1 K/mm3 (0.0-0.4) 12/17/20 23:10 Baso # (Auto) 0.1 K/mm3 (0.0-0.1) 12/17/20 23:10 Seg Neutrophils % 52.2 % (40.0-70.0) 12/17/20 23:10 Seg Neutrophils # 3.0 K/mm3 (1.8-7.7) 12/17/20 23:10 Sodium 142 mmol/L (137-145) 12/20/20 07:47 Potassium 4.7 mmol/L (3.6-5.0) D 12/20/20 07:47 Chloride 106.3 mmol/L (98-107) 12/20/20 07:47 Carbon Dioxide 27 mmol/L (22-30) 12/20/20 07:47 Anion Gap 13 mmol/L 12/20/20 07:47 BUN 18 mg/dL (7-17) H 12/20/20 07:47 Creatinine 0.7 mg/dL (0.6-1.2) 12/20/20 07:47 Estimated GFR > 60 ml/min 12/20/20 07:47 BUN/Creatinine Ratio 26 % 12/20/20 07:47 Glucose 75 mg/dL (65-100) 12/20/20 07:47 POC Glucose 119 mg/dL (70-105) H 12/18/20 00:18 Hemoglobin A1c 5.2 % (4-6) 12/17/20 23:10 Calcium 9.1 mg/dL (8.4-10.2) 12/20/20 07:47 Total Bilirubin 0.20 mg/dL (0.1-1.2) 12/17/20 23:10 AST 19 units/L (5-40) 12/17/20 23:10 ALT 14 units/L (7-56) 12/17/20 23:10 Alkaline Phosphatase 90 units/L (35-129) 12/17/20 23:10 Total Protein 6.3 g/dL (6.3-8.2) 12/17/20 23:10 Albumin 3.9 g/dL (3.9-5) 12/17/20 23:10 Albumin/Globulin Ratio 1.6 % 12/17/20 23:10 TSH 0.691 mlU/mL (0.270-4.200) 12/17/20 23:10 Valproic Acid < 2.8 ug/mL (50-100) L 12/17/20 23:10 Last Vital Signs Temp 98.8 F 12/19/20 19:24 Pulse 91 H 12/19/20 19:24 Resp 18 12/19/20 19:24 BP 110/71 12/19/20 19:24 Pulse Ox 98 12/19/20 19:24
[2020-12-20] MEDS: risperiDONE 0.25 MG TAB PO SCH ×2 (10:06→21:21)
[2020-12-20] MEDS: DIVALPROEX DR 500 MG TAB PO SCH (10:06)
[2020-12-20] MEDS: NICOTINE 14 MG/24 HR PATCH TD SCH (10:07)
[2020-12-20] MEDS: HEPARIN 5,000 UNIT/1 ML VIAL SUB-Q SCH ×2 (10:08→21:18)
[2020-12-20] MEDS: LOSARTAN 25 MG TAB PO SCH (10:09)
[2020-12-20] MEDS: MIRTAZAPINE 15 MG TAB PO SCH (21:19)
--- NOTE | 2020-12-21 09:10 | Progress Note ---
Subjective Date of service: 12/21/20 Principal diagnosis: dementia w/behaviroal disturbance Subjective Comment: Per Nurse Note:pt spent last evening in activity room interacting appropriately with peers, calm and cooperative, alert and orientedx3, able to make needs known, flight affect, stable mood, medication compliant, good appetite, no distress noted, will continue to monitor for safety. The patient was seen today. She is presenting much better and appears more stable with her mental health. She is complaining about an upset stomach and pain in her back. She denies SI/HI or hallucinations of any kind. When asking the patient says "never." The nurse during treatment team did report at times the patient was a little delusional. Reason for continued inpatient treatment: The patient is presenting much better and does not appear to be a threat to herself. Will continue to monitor her overnight. The patient will be discharge home tomorrow if night uneventful. REVIEW OF SYSTEMS Constitutional: Negative for weight loss ENT: Negative for stridor Respiratory: Negative for cough or hemoptysis All other systems reviewed and are negative MENTAL STATUS EXAMINATION General Appearance and Behavior: Age appropriate, good hygiene, not wearing appropriate clothes, good eye contact, cooperative polite with questioning. Cooperation: Participating/engaged Psychomotor Behavior: Psychomotor agitation Mood: "not good" Affect and affective range: euthymic Thought Process: Circumstantial Thought Content: None Speech: Normal tone and pace Intellectual Functioning: Average Suicidal Ideation: Denies SI Homicidal Ideation: Denies HI Impulse Control: Impaired Insight and Judgment: Limited insight and judgment Memory: Normal, Attention: Divided attention impaired Orientation: Alert, oriented, Assessment and Plan (1) Dementia with Behavioral Disturbance Current Visit: Yes Status: Acute Treatment Plan Patient admitted for inpatient psychiatric evaluation, medication adjustment and close monitoring The patient's behavior, mood, sleep and appetite will be closely monitored. Patient enrolled in individual and group therapeutic sessions and encouraged to attend. Patient provided with a safe and structured environment. Patient's physical health needs will be addressed by the Hospitalist. Hospitalist Consulted Labs including CBC, CMP, Lipid profile and Hemoglobin A1C levels ordered for baseline reference Social Assessment will be completed and the Manager Language will work with patient and family to ensure a suitable and safe disposition Medication adjustment will be made as clinically indicated Increase Risperidone 0.5mg po BID yesterday No changes today Usual Wellness Roman [employer]/Preservation: - Start Trazodone 50 mg po QHS & 50 mg po QHS PRN between 10 PM & 2 AM for insomnia - Start Melatonin 5 mg po QHS to promote circadian rhythm - Start [place]-3 for brain health, reduce impulsivity, and as adjunctive treatment for mood disorder, continue upon discharge given overall benefits. - Start B1 prophylaxis with 200 mg po for 5 days The patient agreed on the treatment plan, understood the risk, benefit, alternative treatment, potential consequence of no treatment, and gave informed consent. Estimated days: 4 Post hospital care: primary care provider, psychiatric provider Medications and Allergies Allergies Allergy/AdvReac Type Severity Reaction Status Date / Time ketorolac [From Toradol] Allergy Hives Verified 12/16/20 15:42 loracarbef [From Lorabid] Allergy Hives Verified 12/16/20 15:42 pentazocine [From Talwin] Allergy Hives Verified 12/16/20 15:42 Home Medications Medication Instructions Recorded Confirmed Last Taken Type Cyclobenzaprine [Flexeril 10 MG 5 mg PO DAILY PRN 12/18/20 12/18/20 Unknown Hist ory TAB] Divalproex Dr [Depakote Dr] 500 mg PO DAILY 12/18/20 12/18/20 Unknown History Meloxicam [Mobic] 7.5 mg PO DAILY PRN 12/18/20 12/18/20 Unknown History Mirtazapine 7.5 mg PO HS 12/18/20 12/18/20 Unknown History hydroCHLOROthiazide 12.5 mg PO DAILY 12/18/20 12/18/20 Unknown History [Hydrochlorothiazide] risperiDONE [RisperDAL] 0.25 mg PO BID 12/18/20 12/18/20 Unknown History Active Meds: Active Medications Cyclobenzaprine HCl (Cyclobenzaprine 10 Mg Tab) 5 mg PO DAILY PRN PRN Reason: Muscle Spasm Divalproex Sodium (Divalproex Dr 500 Mg Tab) 500 mg PO DAILY [facility] Last Admin: 12/20/20 10:06 Dose: 500 mg Documented by: Heparin Sodium (Porcine) (Heparin 5,000 Unit/1 Ml Vial) 5,000 unit SUB-Q Q12HR [facility] Last Admin: 12/20/20 21:18 Dose: Not Given Documented by: Losartan Potassium (Losartan 25 Mg Tab) 25 mg PO QDAY [facility] Last Admin: 12/20/20 10:09 Dose: 25 mg Documented by: Meloxicam (Meloxicam 7.5 Mg Tab) 7.5 mg PO DAILY PRN PRN Reason: Muscle Spasm Mirtazapine (Mirtazapine 15 Mg Tab) 7.5 mg PO QHS [facility] Last Admin: 12/20/20 21:19 Dose: 7.5 mg Documented by: Nicotine (Nicotine 14 Mg/24 Hr Patch) 14 mg TD QDAY [facility] Last Admin: 12/20/20 10:07 Dose: 14 mg Documented by: Risperidone (Risperidone 0.25 Mg Tab) 0.5 mg PO BID [facility] Last Admin: 12/20/20 21:21 Dose: 0.5 mg Documented by: Results - Results Labs/Vitals: Laboratory Last Values WBC 5.7 K/mm3 (4.5-11.0) 12/17/20 23:10 RBC 3.72 M/mm3 (3.65-5.03) 12/17/20 23:10 Hgb 12.3 gm/dl (10.1-14.3) 12/17/20 23:10 Hct 36.4 % (30.3-42.9) 12/17/20 23:10 MCV 98 fl (79-97) H 12/17/20 23:10 MCH 33 pg (28-32) H 12/17/20 23:10 MCHC 34 % (30-34) 12/17/20 23:10 RDW 15.0 % (13.2-15.2) 12/17/20 23:10 Plt Count 222 K/mm3 (140-440) 12/17/20 23:10 Lymph % (Auto) 37.7 % (13.4-35.0) H 12/17/20 23:10 [place] % (Auto) 7.6 % (0.0-7.3) H 12/17/20 23:10 Eos % (Auto) 1.5 % (0.0-4.3) 12/17/20 23:10 Baso % (Auto) 1.0 % (0.0-1.8) 12/17/20 23:10 Lymph # (Auto) 2.1 K/mm3 (1.2-5.4) 12/17/20 23:10 [place] # (Auto) 0.4 K/mm3 (0.0-0.8) 12/17/20 23:10 Eos # (Auto) 0.1 K/mm3 (0.0-0.4) 12/17/20 23:10 Baso # (Auto) 0.1 K/mm3 (0.0-0.1) 12/17/20 23:10 Seg Neutrophils % 52.2 % (40.0-70.0) 12/17/20 23:10 Seg Neutrophils # 3.0 K/mm3 (1.8-7.7) 12/17/20 23:10 Sodium 142 mmol/L (137-145) 12/20/20 07:47 Potassium 4.7 mmol/L (3.6-5.0) D 12/20/20 07:47 Chloride 106.3 mmol/L (98-107) 12/20/20 07:47 Carbon Dioxide 27 mmol/L (22-30) 12/20/20 07:47 Anion Gap 13 mmol/L 12/20/20 07:47 BUN 18 mg/dL (7-17) H 12/20/20 07:47 Creatinine 0.7 mg/dL (0.6-1.2) 12/20/20 07:47 Estimated GFR > 60 ml/min 12/20/20 07:47 BUN/Creatinine Ratio 26 % 12/20/20 07:47 Glucose 75 mg/dL (65-100) 12/20/20 07:47 POC Glucose 119 mg/dL (70-105) H 12/18/20 00:18 Hemoglobin A1c 5.2 % (4-6) 12/17/20 23:10 Calcium 9.1 mg/dL (8.4-10.2) 12/20/20 07:47 Total Bilirubin 0.20 mg/dL (0.1-1.2) 12/17/20 23:10 AST 19 units/L (5-40) 12/17/20 23:10 ALT 14 units/L (7-56) 12/17/20 23:10 Alkaline Phosphatase 90 units/L (35-129) 12/17/20 23:10 Total Protein 6.3 g/dL (6.3-8.2) 12/17/20 23:10 Albumin 3.9 g/dL (3.9-5) 12/17/20 23:10 Albumin/Globulin Ratio 1.6 % 12/17/20 23:10 TSH 0.691 mlU/mL (0.270-4.200) 12/17/20 23:10 Valproic Acid < 2.8 ug/mL (50-100) L 12/17/20 23:10 Last Vital Signs Temp 98.6 F 12/21/20 07:39 Pulse 95 H 12/21/20 07:39 Resp 18 12/21/20 07:39 BP 111/53 12/21/20 07:39 Pulse Ox 98 12/21/20 07:39
[2020-12-21] MEDS: risperiDONE 0.25 MG TAB PO SCH ×2 (09:17→21:50)
[2020-12-21] MEDS: DIVALPROEX DR 500 MG TAB PO SCH (09:17)
[2020-12-21] MEDS: HEPARIN 5,000 UNIT/1 ML VIAL SUB-Q SCH ×2 (09:18→22:40)
[2020-12-21] MEDS: NICOTINE 14 MG/24 HR PATCH TD SCH (09:18)
[2020-12-21] MEDS: LOSARTAN 25 MG TAB PO SCH (09:18)
--- NOTE | 2020-12-21 09:43 | Discharge Summary ---
Providers - Providers Date of Admission: 12/17/20 22:40 Date of discharge: 12/21/20 Attending physician: KAYY GUERRERO MD 12/17/20 22:02 Consult to Physician [CONS] Routine Comment: Consulting Provider: ISA MABRY Physician Instructions: Reason For Exam: manage medical conditions Primary care physician: LABOR DELIVERY RN Hospitalization Reason for admission: delusional Admitting Diagnosis: F02.81 - DEMENTIA IN OTH DISEASES CLASSD ELSWHR W BEHAVIORAL DISTURB Disposition: DC-01 TO HOME OR SELFCARE Time spent for discharge: 35 Allergies/Adverse Reactions: Allergies ketorolac [From Toradol] Allergy (Verified 12/16/20 15:42) Hives loracarbef [From Lorabid] Allergy (Verified 12/16/20 15:42) Hives pentazocine [From Talwin] Allergy (Verified 12/16/20 15:42) Hives Vital Signs: Last Vital Signs Temp 98.6 F 12/21/20 07:39 Pulse 95 H 12/21/20 09:18 Resp 18 12/21/20 07:39 BP 111/53 12/21/20 07:39 Pulse Ox 98 12/21/20 07:39 Last Lab: Laboratory Last Values WBC 5.7 K/mm3 (4.5-11.0) 12/17/20 23:10 RBC 3.72 M/mm3 (3.65-5.03) 12/17/20 23:10 Hgb 12.3 gm/dl (10.1-14.3) 12/17/20 23:10 Hct 36.4 % (30.3-42.9) 12/17/20 23:10 MCV 98 fl (79-97) H 12/17/20 23:10 MCH 33 pg (28-32) H 12/17/20 23:10 MCHC 34 % (30-34) 12/17/20 23:10 RDW 15.0 % (13.2-15.2) 12/17/20 23:10 Plt Count 222 K/mm3 (140-440) 12/17/20 23:10 Lymph % (Auto) 37.7 % (13.4-35.0) H 12/17/20 23:10 [place] % (Auto) 7.6 % (0.0-7.3) H 12/17/20 23:10 Eos % (Auto) 1.5 % (0.0-4.3) 12/17/20 23:10 Baso % (Auto) 1.0 % (0.0-1.8) 12/17/20 23:10 Lymph # (Auto) 2.1 K/mm3 (1.2-5.4) 12/17/20 23:10 [place] # (Auto) 0.4 K/mm3 (0.0-0.8) 12/17/20 23:10 Eos # (Auto) 0.1 K/mm3 (0.0-0.4) 12/17/20 23:10 Baso # (Auto) 0.1 K/mm3 (0.0-0.1) 12/17/20 23:10 Seg Neutrophils % 52.2 % (40.0-70.0) 12/17/20 23:10 Seg Neutrophils # 3.0 K/mm3 (1.8-7.7) 12/17/20 23:10 Sodium 142 mmol/L (137-145) 12/20/20 07:47 Potassium 4.7 mmol/L (3.6-5.0) D 12/20/20 07:47 Chloride 106.3 mmol/L (98-107) 12/20/20 07:47 Carbon Dioxide 27 mmol/L (22-30) 12/20/20 07:47 Anion Gap 13 mmol/L 12/20/20 07:47 BUN 18 mg/dL (7-17) H 12/20/20 07:47 Creatinine 0.7 mg/dL (0.6-1.2) 12/20/20 07:47 Estimated GFR > 60 ml/min 12/20/20 07:47 BUN/Creatinine Ratio 26 % 12/20/20 07:47 Glucose 75 mg/dL (65-100) 12/20/20 07:47 POC Glucose 119 mg/dL (70-105) H 12/18/20 00:18 Hemoglobin A1c 5.2 % (4-6) 12/17/20 23:10 Calcium 9.1 mg/dL (8.4-10.2) 12/20/20 07:47 Total Bilirubin 0.20 mg/dL (0.1-1.2) 12/17/20 23:10 AST 19 units/L (5-40) 12/17/20 23:10 ALT 14 units/L (7-56) 12/17/20 23:10 Alkaline Phosphatase 90 units/L (35-129) 12/17/20 23:10 Total Protein 6.3 g/dL (6.3-8.2) 12/17/20 23:10 Albumin 3.9 g/dL (3.9-5) 12/17/20 23:10 Albumin/Globulin Ratio 1.6 % 12/17/20 23:10 TSH 0.691 mlU/mL (0.270-4.200) 12/17/20 23:10 Valproic Acid < 2.8 ug/mL (50-100) L 12/17/20 23:10 Core Measure Documentation - Palliative Care Palliative Care/ Comfort Measures: Not Applicable - Core Measures Any of the following diagnoses?: none Exam - Constitutional Vitals: Temp Pulse Resp BP Pulse Ox 98.6 F 95 H 18 111/53 98 12/21/20 07:39 12/21/20 09:18 12/21/20 07:39 12/21/20 07:39 12/21/20 07:39 General appearance: Present: no acute distress - EENT Eyes: Present: PERRL, EOM intact ENT: hearing intact, clear oral mucosa - Neck Neck: Present: supple, normal ROM - Respiratory Respiratory effort: normal Plan Activity: advance as tolerated Weight Bearing Status: Weight Bear as Tolerated Care Plan Goals: Maintain good and stable mental health Follow up with: PRIMARY CARE, [Primary Care Provider] - 7 Days Prescriptions: Mirtazapine [Remeron 15mg TAB] 7.5 mg PO QHS #15 tablet Nicotine [Habitrol] 14 mg TD QDAY #30 patch risperiDONE [RisperDAL] 0.5 mg PO BID #120 tablet
[2020-12-21] MEDS: MIRTAZAPINE 15 MG TAB PO SCH (21:50)
--- NOTE | 2020-12-22 10:08 | Progress Note ---
Subjective Date of service: 12/22/20 Principal diagnosis: dementia w/behaviroal disturbance Subjective Comment: The patient was seen today. She is calm, cooperative and pleasant. She says she thought she was going home yesterday, but was told by the SW she would be going home today or tomorrow. Reason for continued inpatient treatment: The patient was discharged yesterday, but states the patient's discharge place was not secured. The patient is awaiting placement. REVIEW OF SYSTEMS Constitutional: Negative for weight loss ENT: Negative for stridor Respiratory: Negative for cough or hemoptysis All other systems reviewed and are negative MENTAL STATUS EXAMINATION General Appearance and Behavior: Age appropriate, good hygiene, not wearing appropriate clothes, good eye contact, cooperative polite with questioning. Cooperation: Participating/engaged Psychomotor Behavior: Psychomotor agitation Mood: Good Affect and affective range: euthymic, euphoric Thought Process:Circumstantial, Illogical, Thought Content: Flight of ideas, Illogical, Grandiose, Speech: pressured, loud volume at times Intellectual Functioning: Average Suicidal Ideation: Denies SI Homicidal Ideation: Denies HIl Impulse Control: Impaired Insight and Judgment: Limited insight and judgment Memory: Normal, Attention: Divided attention impaired Orientation: Alert, oriented, Assessment and Plan (1) Dementia with Behavioral Disturbance Current Visit: Yes Status: Acute Treatment Plan Patient admitted for inpatient psychiatric evaluation, medication adjustment and close monitoring The patient's behavior, mood, sleep and appetite will be closely monitored. Patient enrolled in individual and group therapeutic sessions and encouraged to attend. Patient provided with a safe and structured environment. Patient's physical health needs will be addressed by the Hospitalist. Hospitalist Consulted Labs including CBC, CMP, Lipid profile and Hemoglobin A1C levels ordered for baseline reference Social Assessment will be completed and the Field Technical Specialist will work with patient and family to ensure a suitable and safe disposition Medication adjustment will be made as clinically indicated No medication changes today Usual Wellness [employer]oodoo/Preservation: - Start Trazodone 50 mg po QHS & 50 mg po QHS PRN between 10 PM & 2 AM for insomnia - Start Melatonin 5 mg po QHS to promote circadian rhythm - Start [place]-3 for brain health, reduce impulsivity, and as adjunctive treatment for mood disorder, continue upon discharge given overall benefits. - Start B1 prophylaxis with 200 mg po for 5 days The patient agreed on the treatment plan, understood the risk, benefit, alternative treatment, potential consequence of no treatment, and gave informed consent. Estimated days: 5 Post hospital care: primary care provider, psychiatric provider Medications and Allergies Allergies Allergy/AdvReac Type Severity Reaction Status Date / Time ketorolac [From Toradol] Allergy Hives Verified 12/16/20 15:42 loracarbef [From Lorabid] Allergy Hives Verified 12/16/20 15:42 pentazocine [From Talwin] Allergy Hives Verified 12/16/20 15:42 Home Medications Medication Instructions Recorded Confirmed Last Taken Type Cyclobenzaprine [Flexeril 10 MG 5 mg PO DAILY PRN 12/18/20 12/18/20 Unknown History TAB] Divalproex Dr [Depakote Dr] 500 mg PO DAILY 12/18/20 12/18/20 Unknown History Meloxicam [Mobic] 7.5 mg PO DAILY PRN 12/18/20 12/18/20 Unknown History Mirtazapine 7.5 mg PO HS 12/18/20 12/18/20 Unknown History hydroCHLOROthiazide 12.5 mg PO DAILY 12/18/20 12/18/20 Unknown History [Hydrochlorothiazide] Mirtazapine [Remeron 15mg TAB] 7.5 mg PO QHS #15 tablet 12/21/20 Unknown Rx Nicotine [Habitrol] 14 mg TD QDAY #30 patch 12/21/20 Unknown Rx risperiDONE [RisperDAL] 0.5 mg PO BID #120 tablet 12/21/20 Unknown Rx Active Meds: Active Medications Cyclobenzaprine HCl (Cyclobenzaprine 10 Mg Tab) 5 mg PO DAILY PRN PRN Reason: Muscle Spasm Divalproex Sodium (Divalproex Dr 500 Mg Tab) 500 mg PO DAILY [facility] Last Admin: 12/21/20 09:17 Dose: 500 mg Documented by: Heparin Sodium (Porcine) (Heparin 5,000 Unit/1 Ml Vial) 5,000 unit SUB-Q Q12HR [facility] Last Admin: 12/21/20 22:40 Dose: Not Given Documented by: Losartan Potassium (Losartan 25 Mg Tab) 25 mg PO QDAY [facility] Last Admin: 12/21/20 09:18 Dose: 25 mg Documented by: Meloxicam (Meloxicam 7.5 Mg Tab) 7.5 mg PO DAILY PRN PRN Reason: Muscle Spasm Mirtazapine (Mirtazapine 15 Mg Tab) 7.5 mg PO QHS [facility] Last Admin: 12/21/20 21:50 Dose: 7.5 mg Documented by: Nicotine (Nicotine 14 Mg/24 Hr Patch) 14 mg TD QDAY [facility] Last Admin: 12/21/20 09:18 Dose: 14 mg Documented by: Risperidone (Risperidone 0.25 Mg Tab) 0.5 mg PO BID [facility] Last Admin: 12/21/20 21:50 Dose: 0.5 mg Documented by: Results - Results Labs/Vitals: Laboratory Last Values WBC 5.7 K/mm3 (4.5-11.0) 12/17/20 23:10 RBC 3.72 M/mm3 (3.65-5.03) 12/17/20 23:10 Hgb 12.3 gm/dl (10.1-14.3) 12/17/20 23:10 Hct 36.4 % (30.3-42.9) 12/17/20 23:10 MCV 98 fl (79-97) H 12/17/20 23:10 MCH 33 pg (28-32) H 12/17/20 23:10 MCHC 34 % (30-34) 12/17/20 23:10 RDW 15.0 % (13.2-15.2) 12/17/20 23:10 Plt Count 222 K/mm3 (140-440) 12/17/20 23:10 Lymph % (Auto) 37.7 % (13.4-35.0) H 12/17/20 23:10 [place] % (Auto) 7.6 % (0.0-7.3) H 12/17/20 23:10 Eos % (Auto) 1.5 % (0.0-4.3) 12/17/20 23:10 Baso % (Auto) 1.0 % (0.0-1.8) 12/17/20 23:10 Lymph # (Auto) 2.1 K/mm3 (1.2-5.4) 12/17/20 23:10 [place] # (Auto) 0.4 K/mm3 (0.0-0.8) 12/17/20 23:10 Eos # (Auto) 0.1 K/mm3 (0.0-0.4) 12/17/20 23:10 Baso # (Auto) 0.1 K/mm3 (0.0-0.1) 12/17/20 23:10 Seg Neutrophils % 52.2 % (40.0-70.0) 12/17/20 23:10 Seg Neutrophils # 3.0 K/mm3 (1.8-7.7) 12/17/20 23:10 Sodium 142 mmol/L (137-145) 12/20/20 07:47 Potassium 4.7 mmol/L (3.6-5.0) D 12/20/20 07:47 Chloride 106.3 mmol/L (98-107) 12/20/20 07:47 Carbon Dioxide 27 mmol/L (22-30) 12/20/20 07:47 Anion Gap 13 mmol/L 12/20/20 07:47 BUN 18 mg/dL (7-17) H 12/20/20 07:47 Creatinine 0.7 mg/dL (0.6-1.2) 12/20/20 07:47 Estimated GFR > 60 ml/min 12/20/20 07:47 BUN/Creatinine Ratio 26 % 12/20/20 07:47 Glucose 75 mg/dL (65-100) 12/20/20 07:47 POC Glucose 119 mg/dL (70-105) H 12/18/20 00:18 Hemoglobin A1c 5.2 % (4-6) 12/17/20 23:10 Calcium 9.1 mg/dL (8.4-10.2) 12/20/20 07:47 Total Bilirubin 0.20 mg/dL (0.1-1.2) 12/17/20 23:10 AST 19 units/L (5-40) 12/17/20 23:10 ALT 14 units/L (7-56) 12/17/20 23:10 Alkaline Phosphatase 90 units/L (35-129) 12/17/20 23:10 Total Protein 6.3 g/dL (6.3-8.2) 12/17/20 23:10 Albumin 3.9 g/dL (3.9-5) 12/17/20 23:10 Albumin/Globulin Ratio 1.6 % 12/17/20 23:10 TSH 0.691 mlU/mL (0.270-4.200) 12/17/20 23:10 Valproic Acid < 2.8 ug/mL (50-100) L 12/17/20 23:10 Last Vital Signs Temp 98.9 F 12/21/20 19:45 Pulse 103 H 12/21/20 19:45 Resp 18 12/21/20 19:45 BP 111/74 12/21/20 19:45 Pulse Ox 98 12/21/20 19:45
[2020-12-22] MEDS: LOSARTAN 25 MG TAB PO SCH (10:31)
[2020-12-22] MEDS: risperiDONE 0.25 MG TAB PO SCH ×2 (10:32→21:05)
[2020-12-22] MEDS: DIVALPROEX DR 500 MG TAB PO SCH (10:32)
[2020-12-22] MEDS: HEPARIN 5,000 UNIT/1 ML VIAL SUB-Q SCH ×2 (10:32→21:05)
[2020-12-22] MEDS: NICOTINE 14 MG/24 HR PATCH TD SCH (10:32)
[2020-12-22] MEDS: MIRTAZAPINE 15 MG TAB PO SCH (21:04)
[2020-12-23] MEDS: LOSARTAN 25 MG TAB PO SCH (09:16)
[2020-12-23] MEDS: NICOTINE 14 MG/24 HR PATCH TD SCH (09:16)
[2020-12-23] MEDS: risperiDONE 0.25 MG TAB PO SCH (09:17)
[2020-12-23] MEDS: DIVALPROEX DR 500 MG TAB PO SCH (09:17)
[2020-12-23] MEDS: HEPARIN 5,000 UNIT/1 ML VIAL SUB-Q SCH (09:18)
[2020-12-23 09:19] VITALS: BP 92/53
--- NOTE | 2020-12-23 10:09 | Discharge Summary ---
Providers - Providers Date of Admission: 12/17/20 22:40 Date of discharge: 12/23/20 Attending physician: KAYY GUERRERO MD 12/17/20 22:02 Consult to Physician [CONS] Routine Comment: Consulting Provider: ISA MABRY Physician Instructions: Reason For Exam: manage medical conditions Primary care physician: [employer] [employer] Hospitalization Reason for admission: delusions Admitting Diagnosis: F02.81 - DEMENTIA IN OTH DISEASES CLASSD ELSWHR W BEHAVIORAL DISTURB Condition: Stable Disposition: DC-01 TO HOME OR SELFCARE Time spent for discharge: 38 Allergies/Adverse Reactions: Allergies ketorolac [From Toradol] Allergy (Verified 12/16/20 15:42) Hives loracarbef [From Lorabid] Allergy (Verified 12/16/20 15:42) Hives pentazocine [From Talwin] Allergy (Verified 12/16/20 15:42) Hives Vital Signs: Last Vital Signs Temp 98.6 F 12/22/20 22:00 Pulse 76 12/23/20 09:16 Resp 18 12/22/20 22:00 BP 92/53 12/23/20 09:16 Pulse Ox 98 12/22/20 22:00 Last Lab: Laboratory Last Values WBC 5.7 K/mm3 (4.5-11.0) 12/17/20 23:10 RBC 3.72 M/mm3 (3.65-5.03) 12/17/20 23:10 Hgb 12.3 gm/dl (10.1-14.3) 12/17/20 23:10 Hct 36.4 % (30.3-42.9) 12/17/20 23:10 MCV 98 fl (79-97) H 12/17/20 23:10 MCH 33 pg (28-32) H 12/17/20 23:10 MCHC 34 % (30-34) 12/17/20 23:10 RDW 15.0 % (13.2-15.2) 12/17/20 23:10 Plt Count 222 K/mm3 (140-440) 12/17/20 23:10 Lymph % (Auto) 37.7 % (13.4-35.0) H 12/17/20 23:10 [place] % (Auto) 7.6 % (0.0-7.3) H 12/17/20 23:10 Eos % (Auto) 1.5 % (0.0-4.3) 12/17/20 23:10 Baso % (Auto) 1.0 % (0.0-1.8) 12/17/20 23:10 Lymph # (Auto) 2.1 K/mm3 (1.2-5.4) 12/17/20 23:10 [place] # (Auto) 0.4 K/mm3 (0.0-0.8) 12/17/20 23:10 Eos # (Auto) 0.1 K/mm3 (0.0-0.4) 12/17/20 23:10 Baso # (Auto) 0.1 K/mm3 (0.0-0.1) 12/17/20 23:10 Seg Neutrophils % 52.2 % (40.0-70.0) 12/17/20 23:10 Seg Neutrophils # 3.0 K/mm3 (1.8-7.7) 12/17/20 23:10 Sodium 142 mmol/L (137-145) 12/20/20 07:47 Potassium 4.7 mmol/L (3.6-5.0) D 12/20/20 07:47 Chloride 106.3 mmol/L (98-107) 12/20/20 07:47 Carbon Dioxide 27 mmol/L (22-30) 12/20/20 07:47 Anion Gap 13 mmol/L 12/20/20 07:47 BUN 18 mg/dL (7-17) H 12/20/20 07:47 Creatinine 0.7 mg/dL (0.6-1.2) 12/20/20 07:47 Estimated GFR > 60 ml/min 12/20/20 07:47 BUN/Creatinine Ratio 26 % 12/20/20 07:47 Glucose 75 mg/dL (65-100) 12/20/20 07:47 POC Glucose 119 mg/dL (70-105) H 12/18/20 00:18 Hemoglobin A1c 5.2 % (4-6) 12/17/20 23:10 Calcium 9.1 mg/dL (8.4-10.2) 12/20/20 07:47 Total Bilirubin 0.20 mg/dL (0.1-1.2) 12/17/20 23:10 AST 19 units/L (5-40) 12/17/20 23:10 ALT 14 units/L (7-56) 12/17/20 23:10 Alkaline Phosphatase 90 units/L (35-129) 12/17/20 23:10 Total Protein 6.3 g/dL (6.3-8.2) 12/17/20 23:10 Albumin 3.9 g/dL (3.9-5) 12/17/20 23:10 Albumin/Globulin Ratio 1.6 % 12/17/20 23:10 TSH 0.691 mlU/mL (0.270-4.200) 12/17/20 23:10 Valproic Acid < 2.8 ug/mL (50-100) L 12/17/20 23:10 Core Measure Documentation - Palliative Care Palliative Care/ Comfort Measures: Not Applicable - Core Measures Any of the following diagnoses?: none Exam - Constitutional Vitals: Temp Pulse Resp BP Pulse Ox 98.6 F 76 18 92/53 98 12/22/20 22:00 12/23/20 09:16 12/22/20 22:00 12/23/20 09:16 12/22/20 22:00 General appearance: Present: no acute distress - EENT Eyes: Present: PERRL, EOM intact ENT: hearing intact, clear oral mucosa - Neck Neck: Present: supple - Respiratory Respiratory effort: normal Plan Activity: advance as tolerated Weight Bearing Status: Weight Bear as Tolerated Care Plan Goals: Maintain good and stable mental health Assessment: Dementia with Behavioral Disturbance The patient has been calm and cooperative. She denies SI/HI and hallucinations. She also exhibits no sign of delusions. Nursing staff states the patient has been with out aggression, denies SI/HI, A/V hallucinations. Follow up with: PRIMARY CARE, [Primary Care Provider] - 7 Days Prescriptions: Mirtazapine [Remeron 15mg TAB] 7.5 mg PO QHS #15 tablet Nicotine [Habitrol] 14 mg TD QDAY #30 patch risperiDONE [RisperDAL] 0.5 mg PO BID #120 tablet
== END 2020-12-23 12:10 | disposition home or self-care (01) | DRG 884 ==
LOC: UNDOADMIN 20:30 → 3A 20:30 → 5A 22:40
PROVIDERS: ADMIT Psychiatry & Neurology Psychiatry; ATTEND Psychiatry & Neurology Psychiatry
DX: F03.91 Unspecified dementia, unspecified severity, with behavioral disturbance (principal); E87.0 Hyperosmolality and hypernatremia; E87.6 Hypokalemia; I10 Essential (primary) hypertension; F41.1 Generalized anxiety disorder; F17.210 Nicotine dependence, cigarettes, uncomplicated; Z82.49 Family history of ischemic heart disease and other diseases of the circulatory system; Z79.899 Other long term (current) drug therapy; Z71.6 Tobacco abuse counseling
CPT/HCPCS: 36415; 80048; 80053; 80164; 80307; 80320; 81001; 82962; 83036; 84132; 84443; 85025; G0378; G0480; J1644; U0003

== ENCOUNTER 2021-05-02 14:08 | Emergency (ER) | payer MEDICARE ==
--- NOTE | 2021-05-02 17:05 | Emergency Department Report ---
ED General Adult HPI - General Chief complaint: Extremity Injury, Lower Stated complaint: ANKLE INJURY Time Seen by Provider: 05/02/21 15:44 Source: patient, EMS Mode of arrival: Stretcher Limitations: No Limitations - History of Present Illness Initial comments: Patient is 70 years old female with history of dementia and seizure. Patient stated that she fell in the shower yesterday is complaining of lower back pain. Patient also complaining of right foot wound and swelling for approximately 1 month and a half. Patient stated that she was seen by her primary care physician and she was given antibiotic ointment but no improvement. Patient denied any fever or chills. No chest pain or shortness of breath. No abdominal pain, nausea or vomiting. - Related Data Home Medications Medication Instructions Recorded Confirmed Last Taken Cyclobenzaprine [Flexeril 10 MG 5 mg PO DAILY PRN 12/18/20 12/18/20 Unknown TAB] Divalproex Dr [Depakote Dr] 500 mg PO DAILY 12/18/20 12/18/20 Unknown Meloxicam [Mobic] 7.5 mg PO DAILY PRN 12/18/20 12/18/20 Unknown Mirtazapine 7.5 mg PO HS 12/18/20 12/18/20 Unknown hydroCHLOROthiazide 12.5 mg PO DAILY 12/18/20 12/18/20 Unknown [Hydrochlorothiazide] Previous Rx's Medication Instructions Recorded Last Taken Type Mirtazapine [Remeron 15mg TAB] 7.5 mg PO QHS #15 tablet 12/21/20 Unknown Rx Nicotine [Habitrol] 14 mg TD QDAY #30 patch 12/21/20 Unknown Rx risperiDONE [RisperDAL] 0.5 mg PO BID #120 tablet 12/21/20 Unknown Rx Ciprofloxacin HCl 500 mg PO BID 10 Days #14 tablet 05/02/21 Unknown Rx Ondansetron [Zofran Odt] 4 mg PO Q8HR PRN #14 tab.rapdis 05/02/21 Unknown Rx traMADoL [Ultram 50 MG tab] 50 mg PO Q4HR PRN #14 tablet 05/02/21 Unknown Rx Allergies Allergy/AdvReac Type Severity Reaction Status Date / Time ketorolac [From Toradol] Allergy Hives Verified 12/16/20 15:42 loracarbef [From Lorabid] Allergy Hives Verified 12/16/20 15:42 pentazocine [From Talwin] Allergy Hives Verified 12/16/20 15:42 ED Review of Systems ROS: Stated complaint: ANKLE INJURY Other details as noted in HPI Comment: All other systems reviewed and negative Constitutional: denies: chills, fever Respiratory: denies: cough, shortness of breath, SOB with exertion Cardiovascular: denies: chest pain, palpitations Gastrointestinal: denies: abdominal pain, nausea, vomiting Musculoskeletal: back pain, joint swelling Neurological: denies: headache, weakness, numbness, paresthesias, confusion ED Past Medical Hx - Past Medical History Hx Renal Disease: No Hx Arthritis: No Hx Seizures: Yes Hx Psychiatric Treatment: Yes (Depression w/ SI) Hx COPD: Yes (Chronic Bronchitis) Hx Dementia: Yes Additional medical history: HERINATED DISC/ CYSTITS, IBS, MENGINITIS, FX SKULL A CHILD HEP A&B, Crushed Right Shoulder - Surgical History Hx Cholecystectomy: No Hx Appendectomy: No Additional Surgical History: HYSTO/ SHOULDER REPLACEMENT/ BILATERAL MASTECTOMY - Social History Smoking Status: Current Every Day Smoker - Medications Home Medications: Home Medications Medication Instructions Recorded Confirmed Last Taken Type Cyclobenzaprine [Flexeril 10 MG 5 mg PO DAILY PRN 12/18/20 12/18/20 Unknown History TAB] Divalproex Dr [Depsondra Olmos] 500 mg PO DAILY 12/18/20 12/18/20 Unknown History Meloxicam [Mobic] 7.5 mg PO DAILY PRN 12/18/20 12/18/20 Unknown History Mirtazapine 7.5 mg PO HS 12/18/20 12/18/20 Unknown History hydroCHLOROthiazide 12.5 mg PO DAILY 12/18/20 12/18/20 Unknown History [Hydrochlorothiazide] Mirtazapine [Remeron 15mg TAB] 7.5 mg PO QHS #15 tablet 12/21/20 Unknown Rx Nicotine [Habitrol] 14 mg TD QDAY #30 patch 12/21/20 Unknown Rx risperiDONE [RisperDAL] 0.5 mg PO BID #120 tablet 12/21/20 Unknown Rx Ciprofloxacin HCl 500 mg PO BID 10 Days #14 tablet 05/02/21 Unknown Rx Ondansetron [Zofran Odt] 4 mg PO Q8HR PRN #14 tab.rapdis 05/02/21 Unknown Rx traMADoL [Ultram 50 MG tab] 50 mg PO Q4HR PRN #14 tablet 05/02/21 Unknown Rx ED Physical Exam - General Limitations: No Limitations General appearance: alert, in no apparent distress - Head Head exam: Present: atraumatic, normocephalic, normal inspection - Eye Eye exam: Present: normal appearance, PERRL - ENT ENT exam: Present: normal exam, normal orophraynx, mucous membranes moist - Neck Neck exam: Present: normal inspection, full ROM. Absent: tenderness, meningismus - Respiratory Respiratory exam: Present: normal lung sounds bilaterally - Cardiovascular Cardiovascular Exam: Present: regular rate, normal rhythm, normal heart sounds - GI/Abdominal GI/Abdominal exam: Present: soft, normal bowel sounds. Absent: distended, tenderness, guarding, rebound, rigid, mass, bruit, pulsatile mass, hernia - Extremities Exam Extremities exam: Present: full ROM, normal capillary refill, other (Right foot with 2 wounds. She is 1 cm x 1 cm in size with mild greenish discharge. There is also mild erythema.). Absent: tenderness, pedal edema, joint swelling, calf tenderness - Back Exam Back exam: Present: normal inspection, full ROM. Absent: CVA tenderness (R), CVA tenderness (L) - Neurological Exam Neurological exam: Present: alert, oriented X3, CN II-XII intact - Psychiatric Psychiatric exam: Present: normal mood - Skin Skin exam: Present: warm, intact, normal color ED Course Vital Signs 05/02/21 05/02/21 14:14 18:48 Temperature 98 F 97.9 F Pulse Rate 86 81 Respiratory 16 16 Rate Blood Pressure 124/86 Blood Pressure 120/80 [Right] O2 Sat by Pulse 94 96 Oximetry ED Medical Decision Making - Lab Data Result diagrams: 05/02/21 17:21 05/02/21 18:50 - Radiology Data Radiology results: report reviewed - Medical Decision Making Patient is 70 years old female with history of dementia and seizure. Patient stated that she fell in the shower yesterday is complaining of lower back pain. Patient also complaining of right foot wound and swelling for approximately 1 month and a half. Patient stated that she was seen by her primary care physician and she was given antibiotic ointment but no improvement. Patient denied any fever or chills. No chest pain or shortness of breath. No abdominal pain, nausea or vomiting. X-ray of the lumbar sacral spine showed L3 endplate compression fraction about 25%. Right ankle and foot x-ray showed diffuse swelling however there is no fra cture or dislocation. Patient strongly advised to follow-up with her primary care physician for outpatient MRI of the foot to rule out osteomyelitis. Patient started on ciprofloxacin and clindamycin. Patient advised to follow-up with Dr. Arthur, orthopedics for further management. Patient also advised to follow-up with her primary doctor in the next 2 to 3 days and to return to the ER if she develop any new symptoms. Critical care attestation.: If time is entered above; I have spent that time in minutes in the direct care of this critically ill patient, excluding procedure time. ED Disposition Clinical Impression: Vertebral fracture, Wound infection Disposition: 01 HOME / SELF CARE / HOMELESS Is pt being admited?: No Condition: Stable Instructions: Lumbar Spine Fracture, Wound Infection, [id number] Prescriptions: Ciprofloxacin HCl 500 mg PO BID 10 Days #14 tablet traMADoL [Ultram 50 MG tab] 50 mg PO Q4HR PRN #14 tablet PRN Reason: Pain Ondansetron [Zofran Odt] 4 mg PO Q8HR PRN #14 tab.rapdis PRN Reason: Nausea And Vomiting Referrals: KING ARTHUR MD [Staff Physician] - 3-5 Days
--- NOTE | 2021-05-02 17:18 | XRay Report ---
Right ankle 3 views INDICATION: Fall with chronic wound FINDINGS: Diffuse swelling is seen in the medial and lateral ankle. Signal irregularity distal fibula shaft could represent old injury. No displaced fractures definitely seen. Degenerative changes seen throughout the midfoot. No definite bony destructive change. IMPRESSION: 1. Diffuse swelling throughout the ankle and into the foot. There is concern for infection MRI is rec ommended. 2. Mild irregularity in the distal fibula cortex however no displaced fractures seen. The may be some mild periosteal reaction. If there is concern for infection MRI is recommended. Signer Name: Anderson Mayorga MD Signed: 05/02/2021 5:14 PM Workstation Name: [id number]
--- NOTE | 2021-05-02 17:18 | XRay Report ---
XR spine lumbosacral 2-3V INDICATION / CLINICAL INFORMATION: chronic BACK INJURY. COMPARISON: None available. FINDINGS: BONES/JOINT(S): There is an age indeterminate superior endplate compression fracture of L3 with about 25% height loss. Remaining vertebral body heights are maintained. There is overall normal alignment. No significant degenerative changes. SOFT TISSUES: No significant abnormality. ADDITIONAL FINDINGS: None. Signer Name: Fadi Guido MD Signed: 05/02/2021 5:14 PM Workstation Name: [id number]
[2021-05-02 18:06] LABS: Basophils % (Auto) 0.3 % (0.0-1.8); Eosinophils # (Auto) 0.1 K/mm3 (0.0-0.4); Eosinophils % (Auto) 0.7 % (0.0-4.3); Hematocrit 38.3 % (30.3-42.9); Hemoglobin 13.3 gm/dl (10.1-14.3); Lymphocytes # (Auto) 1.6 K/mm3 (1.2-5.4); Mean Corpuscular HGB Conc 35 % (30-34); Mean Corpuscular Volume 93 fl (79-97); Monocytes # (Auto) 0.9 K/mm3 (0.0-0.8); Monocytes % (Auto) 9.3 % (0.0-7.3); Platelet Count 296 K/mm3 (140-440); Red Blood Count 4.14 M/mm3 (3.65-5.03); Red Cell Distribution Width 13.4 % (13.2-15.2)
[2021-05-02 18:27] LABS: BUN/Creatinine Ratio TNR; Calcium TNR mg/dL (8.4-10.2)
[2021-05-02 18:49] LABS: Alanine Aminotransferase TNR units/L (7-56); Albumin TNR g/dL (3.9-5); Blood Urea Nitrogen TNR mg/dL (7-17)
[2021-05-02 18:50] LABS: Hemolysis Index TNR
[2021-05-02 19:35] LABS: Blood Urea Nitrogen 9 mg/dL (7-17); Calcium 9.6 mg/dL (8.4-10.2); Hemolysis Index 166
[2021-05-02 19:36] LABS: BUN/Creatinine Ratio 15
[2021-05-02 20:51] VITALS: BP 131/79
== END 2021-05-02 20:30 | disposition home or self-care (01) ==
LOC: ED 14:08
DX: S32.009A Unspecified fracture of unspecified lumbar vertebra, initial encounter for closed fracture (principal); L08.89 Other specified local infections of the skin and subcutaneous tissue; J44.9 Chronic obstructive pulmonary disease, unspecified; F03.90 Unspecified dementia, unspecified severity, without behavioral disturbance, psychotic disturbance, mood disturbance, and anxiety; Z88.1 Allergy status to other antibiotic agents; Z98.890 Other specified postprocedural states; F17.200 Nicotine dependence, unspecified, uncomplicated; W19.XXXA Unspecified fall, initial encounter; Y93.89 Activity, other specified; Y92.89 Other specified places as the place of occurrence of the external cause; Y99.8 Other external cause status
CPT/HCPCS: 36415; 72100; 80048; 80053; 85025; 99284

== ENCOUNTER 2021-05-03 00:10 | Emergency (ER) | payer MEDICARE ==
[2021-05-03] MEDS ORDERED: SODIUM CHLORIDE 0.9% 1000 ML 1,000 ML IV ONE (00:58)
--- NOTE | 2021-05-03 01:27 | Emergency Department Report ---
HPI <SOLOMEKHI - Last Filed: 05/03/21 13:28> - HPI HPI: This patient was seen here earlier yesterday evening for a complaint of low back pain after a fall in the shower of the previous day, as well as some chronic pain and swelling to the right foot and ankle. The patient had some unremarkable labs. She had an x-ray of the lumbar spine that showed a 25% L3 compression fracture, and an x-ray of the right ankle and foot that did not show any fracture, dislocation and just showed a periosteal reaction. The patient was discharged at around 10:30 PM last night with a prescription for antibiotics and pain medication, and an outpatient referral for an orthopedist. Patient then went to the other side of the hospital campus to smoke a cigarette. Then she walked down the street and went to the local pharmacy where EMS was called to bring her back to the emergency department because "they said that I did not look good." Patient describes having a panic attack. She has a past medical history of mild dementia and seizures, but is currently oriented AAO x3. She lives in a [facility] and says that she did not have any plan to return there because she is "running away from there because she (the personal [facility] robotics technologist) is very mean to me." <WHITLEY ARRIAGA S - Last Filed: 05/03/21 14:55> - General Chief Complaint: Nausea/Vomiting/Diarrhea Time Seen by Provider: 05/03/21 00:17 ED Past Medical Hx <SOLOMEKHI - Last Filed: 05/03/21 13:28> - Past Medical History Hx Renal Disease: No Hx Arthritis: No Hx Seizures: Yes Hx Psychiatric Treatment: Yes (Depression w/ SI) Hx COPD: Yes (Chronic Bronchitis) Hx Dementia: Yes Additional medical history: HERINATED DISC/ CYSTITS, IBS, MENGINITIS, FX SKULL A CHILD HEP A&B, Crushed Right Shoulder - Surgical History Hx Cholecystectomy: No Hx Appendectomy: No Additional Surgical History: HYSTO/ SHOULDER REPLACEMENT/ BILATERAL MASTECTOMY - Social History Smoking Status: Current Every Day Smoker <WHITLEY ARRIAGA S - Last Filed: 05/03/21 14:55> - Medications Home Medications: Home Medications Medication Instructions Recorded Confirmed Last Taken Type Cyclobenzaprine [Flexeril 10 MG 5 mg PO DAILY PRN 12/18/20 12/18/20 Unknown History TAB] Mirtazapine [Remeron 15mg TAB] 7.5 mg PO QHS #15 tablet 12/21/20 Unknown Rx Nicotine [Habitrol] 14 mg TD QDAY #30 patch 12/21/20 Unknown Rx Ciprofloxacin HCl 500 mg PO BID 10 Days #14 tablet 05/02/21 Unknown Rx Clindamycin [Clindamycin CAP] 300 mg PO Q8H #21 cap 05/02/21 Unknown Rx Ondansetron [Zofran Odt] 4 mg PO Q8HR PRN #14 tab.rapdis 05/02/21 Unknown Rx traMADoL [Ultram 50 MG tab] 50 mg PO Q4HR PRN #14 tablet 05/02/[address] [Depakote Dr] 500 mg PO DAILY #30 05/03/21 Unknown Rx Meloxicam [Mobic] 7.5 mg PO DAILY PRN #30 05/03/21 Unknown Rx Mirtazapine 7.5 mg PO HS #30 05/03/21 Unknown Rx hydroCHLOROthiazide 12.5 mg PO DAILY #30 cap 05/03/21 Unknown Rx [Hydrochlorothiazide] risperiDONE [RisperDAL] 0.5 mg PO BID #60 tablet 05/03/21 Unknown Rx ED Review of Systems ROS: Stated complaint: DIARRHEA Other details as noted in HPI <MEKHI SOLO - Last Filed: 05/03/21 13:28> ROS: Stated complaint: DIARRHEA Other details as noted in HPI Comment: All other systems reviewed and negative Constitutional: denies: chills, fever Eyes: denies: eye pain, vision change ENT: denies: ear pain, throat pain Respiratory: denies: cough, shortness of breath Cardiovascular: denies: chest pain, palpitations Gastrointestinal: denies: abdominal pain, vomiting Musculoskeletal: back pain, joint swelling, arthralgia Skin: rash (Chronic to the right ankle and foot). denies: pruritus Neurological: denies: headache, numbness, paresthesias <WHITLEY ARRIAGA - Last Filed: 05/03/21 14:55> Physical Exam - Physical Exam Vital Signs: Vital Signs 05/03/21 05/03/21 05/03/21 00:30 04:26 08:26 Temperature 98.9 F 98.9 F Pulse Rate 99 H 94 H 94 H Respiratory 16 16 15 Rate Blood Pressure 86/49 114/65 118/54 [Left] O2 Sat by Pulse 99 98 96 Oximetry <MEKHI SOLO - Last Filed: 05/03/21 13:28> - Physical Exam Vital Signs: Vital Signs 05/03/21 00:30 Temperature 98.9 F Pulse Rate 99 H Respiratory 16 Rate Blood Pressure 86/49 [Left] O2 Sat by Pulse 99 Oximetry Physical Exam: GENERAL: The patient is well-developed well-nourished. HENT: Normocephalic. Atraumatic. Patient has moist mucous membranes. EYES: Extraocular motions are intact. NECK: Supple. Trachea is midline. CHEST/LUNGS: Clear to auscultation. There is no respiratory distress noted. HEART/CARDIOVASCULAR: Regular. There is no tachycardia. There is no murmur. ABDOMEN: Abdomen is soft, nontender. Patient has normal bowel sounds. SKIN: Skin is warm and dry. There is some nonpitting swelling of the right foot and ankle. There are 2 small 1 cm wounds. No current bleeding or discharge. NEURO: The patient is awake, alert, and cooperative. The patient has no focal neurologic deficits. Normal speech. MUSCULOSKELETAL: There is no tenderness or deformity. There is no limitation range of motion. <WHITLEY ARRIAGA S - Last Filed: 05/03/21 14:55> ED Course Vital Signs 05/03/21 05/03/21 05/03/21 00:30 04:26 08:26 Temperature 98.9 F 98.9 F Pulse Rate 99 H 94 H 94 H Respiratory 16 16 15 Rate Blood Pressure 86/49 114/65 118/54 [Left] O2 Sat by Pulse 99 98 96 Oximetry <MEKHI SOLO - Last Filed: 05/03/21 13:28> Vital Signs 05/03/21 00:30 Temperature 98.9 F Pulse Rate 99 H Respiratory 16 Rate Blood Pressure 86/49 [Left] O2 Sat by Pulse 99 Oximetry <WHITLEY ARRIAGA - Last Filed: 05/03/21 14:55> ED Medical Decision Making - Lab Data Result diagrams: 05/03/21 01:28 05/03/21 01:28 <MEKHI SOLO - Last Filed: 05/03/21 13:28> - Lab Data Result diagrams: 05/03/21 01:28 05/03/21 01:28 Labs 05/03/21 05/03/21 01:28 01:28 WBC 9.6 RBC 3.53 L Hgb 11.5 Hct 32.0 D MCV 91 MCH 33 H MCHC 36 H RDW 13.2 Plt Count 266 Lymph % (Auto) 15.9 Kinney % (Auto) 9.4 H Eos % (Auto) 0.9 Baso % (Auto) 0.8 Lymph # (Auto) 1.5 Kinney # (Auto) 0.9 H Eos # (Auto) 0.1 Baso # (Auto) 0.1 Seg Neutrophils % 73.0 H Seg Neutrophils # 7.0 Sodium 139 Potassium 3.2 L D Chloride 98.3 Carbon Dioxide 29 Anion Gap 15 BUN 13 Creatinine 0.8 Estimated GFR > 60 BUN/Creatinine Ratio 16 Glucose 145 H Calcium 8.9 - Medical Decision Making Patient was seen yesterday evening for low back pain after a fall and chronic right foot pain. Once the patient was discharged she walked outside for a few hours, smoke some cigarettes, and went to the local pharmacy. Patient says that she began having a panic attack and EMS was called. At the time of my examination the patient is resting comfortably, calm and appropriate. She is awake and alert, oriented, AAO x3. She no longer appears to be having a panic attack. The patient admits that she is avoiding going back to the personal [facility] as she feels that she is being mistreated there. Initially the patient had some mild hypotension, so was given some IV fluid resuscitation. Repeat vitals show resolution and all vitals are currently within normal limits and reassuring. Labs have been mostly unremarkable including CBC and BMP, except for some hyp okalemia with a potassium level of 3.2. She was given potassium chloride. The patient still has the previous prescriptions for pain medication and antibiotics for her chronic right foot pain and infection. She has been given outpatient referral for an orthopedist. A case management consult has been placed to assist with discharge planning. <WHITLEY ARRIAGA - Last Filed: 05/03/21 14:55> Critical care attestation.: If time is entered above; I have spent that time in minutes in the direct care of this critically ill patient, excluding procedure time. <MEKHI SOLO - Last Filed: 05/03/21 13:28> Critical Care Time: No Critical care attestation.: If time is entered above; I have spent that time in minutes in the direct care of this critically ill patient, excluding procedure time. <WHITLEY ARRIAGA - Last Filed: 05/03/21 14:55> ED Disposition Is pt being admited?: No Does the pt Need Aspirin: No Time of Disposition: 13:34 <MEKHI SOLO - Last Filed: 05/03/21 13:28> Is pt being admited?: No <WHITLEY ARRIAGA - Last Filed: 05/03/21 14:55> Clinical Impression: Discharge planning issues, Wound infection, Hypokalemia Disposition: 01 HOME / SELF CARE / HOMELESS Condition: Stable Instructions: Hypokalemia, Wound Care, Adult, Potassium Content of Foods Prescriptions: Divalproex Dr [Depakote Dr] 500 mg PO DAILY #30 hydroCHLOROthiazide [Hydrochlorothiazide] 12.5 mg PO DAILY #30 cap Mirtazapine 7.5 mg PO HS #30 Meloxicam [Mobic] 7.5 mg PO DAILY PRN #30 PRN Reason: Muscle Spasm risperiDONE [RisperDAL] 0.5 mg PO BID #60 tablet Referrals: PRIMARY CAREMD [Primary Care Provider] - 2-3 Days KING PINZON MD [Staff Physician] - 2-3 Days [facility] [Outside] - 2-3 Days
[2021-05-03 01:52] LABS: Basophils # (Auto) 0.1 K/mm3 (0.0-0.1); Basophils % (Auto) 0.8 % (0.0-1.8); Eosinophils # (Auto) 0.1 K/mm3 (0.0-0.4); Eosinophils % (Auto) 0.9 % (0.0-4.3); Hemoglobin 11.5 gm/dl (10.1-14.3); Lymphocytes # (Auto) 1.5 K/mm3 (1.2-5.4); Lymphocytes % (Auto) 15.9 % (13.4-35.0); Mean Corpuscular HGB Conc 36 % (30-34); Mean Corpuscular Volume 91 fl (79-97); Monocytes # (Auto) 0.9 K/mm3 (0.0-0.8); Monocytes % (Auto) 9.4 % (0.0-7.3); Platelet Count 266 K/mm3 (140-440); Red Blood Count 3.53 M/mm3 (3.65-5.03); Red Cell Distribution Width 13.2 % (13.2-15.2)
[2021-05-03 02:11] LABS: BUN/Creatinine Ratio 16; Blood Urea Nitrogen 13 mg/dL (7-17); Calcium 8.9 mg/dL (8.4-10.2); Hemolysis Index 2
[2021-05-03] MEDS ORDERED: POTASSIUM CHLORIDE ER 20 MEQ TAB PO ONE (02:14)
[2021-05-03 08:27] VITALS: BP 118/54
== END 2021-05-03 13:32 | disposition home or self-care (01) ==
LOC: ED 00:10
DX: L08.9 Local infection of the skin and subcutaneous tissue, unspecified (principal); E87.6 Hypokalemia; Z75.1 Person awaiting admission to adequate facility elsewhere; F17.200 Nicotine dependence, unspecified, uncomplicated; Z86.59 Personal history of other mental and behavioral disorders
CPT/HCPCS: 36415; 80048; 85025; 96360; 99284; J7030

== ENCOUNTER 2021-05-04 16:53 | Emergency (ER) | payer MEDICARE ==
--- NOTE | 2021-05-04 17:47 | Emergency Department Report ---
ED Psych HPI - General Chief Complaint: Psych Stated Complaint: MUST BE ADMITTED DUE TO ANCHOR Time Seen by Provider: 05/04/21 17:17 Source: patient Mode of arrival: Ambulatory - History of Present Illness Initial Comments: 70-year-old female, history of dementia, anxiety, depression, breast cancer, chronic back pain, presents to ED for mental health evaluation. Patient states she needs to be checked out because she is overwhelmed with everything that has been going on. Patient reports she witnessed the killing of her 3 cats. States they were in a hot tub that was filled with bleach which caused all of the hair to fall off of the cats. Patient states she is pretty traumatized by the site of this and has been quite depressed. Patient denies any suicidal ideations. Patient's thought process is somewhat disorganized. MD Complaint: feels depressed Associated Psychiatric Symptoms: depression Improves With: none Worsens With: none Context: significant life stressor Associated Symptoms: denies other symptoms Treatments Prior to Arrival: none - Related Data Home Medications Medication Instructions Recorded Confirmed Last Taken Cyclobenzaprine [Flexeril 10 MG 5 mg PO DAILY PRN 12/18/20 12/18/20 Unknown TAB] Previous Rx's Medication Instructions Recorded Last Taken Type Mirtazapine [Remeron 15mg TAB] 7.5 mg PO QHS #15 tablet 12/21/20 Unknown Rx Nicotine [Habitrol] 14 mg TD QDAY #30 patch 12/21/20 Unknown Rx Ciprofloxacin HCl 500 mg PO BID 10 Days #14 tablet 05/02/21 Unknown Rx Clindamycin [Clindamycin CAP] 300 mg PO Q8H #21 cap 05/02/21 Unknown Rx Ondansetron [Zofran Odt] 4 mg PO Q8HR PRN #14 tab.rapdis 05/02/21 Unknown Rx traMADoL [Ultram 50 MG tab] 50 mg PO Q4HR PRN #14 tablet 05/02/[address] [Tato Olmos] 500 mg PO DAILY #30 05/03/21 Unknown Rx Meloxicam [Mobic] 7.5 mg PO DAILY PRN #30 05/03/21 Unknown Rx Mirtazapine 7.5 mg PO HS #30 05/03/21 Unknown Rx hydroCHLOROthiazide 12.5 mg PO DAILY #30 cap 05/03/21 Unknown Rx [Hydrochlorothiazide] risperiDONE [RisperDAL] 0.5 mg PO BID #60 tablet 05/03/[address] [DepaKOTE DR] 500 mg PO DAILY 30 Days #30 tablet 05/05/21 Unknown Rx Fluconazole [Diflucan TAB] 150 mg PO ONCE 1 Days tablet 05/05/21 Unknown Rx Mirtazapine [Remeron] 15 mg PO QHS 30 Days #15 tablet 05/05/21 Unknown Rx Sulfamethoxazole/Trimethoprim 1 each PO BID #14 tablet 05/05/21 Unknown Rx [Bactrim DS TAB] risperiDONE [RisperDAL] 0.5 mg PO QHS 30 Days #30 tablet 05/05/21 Unknown Rx Allergies Allergy/AdvReac Type Severity Reaction Status Date / Time ketorolac [From Toradol] Allergy Hives Verified 05/03/21 00:25 loracarbef [From Lorabid] Allergy Hives Verified 05/03/21 00:25 pentazocine [From Talwin] Allergy Hives Verified 05/03/21 00:25 ED Review of Systems ROS: Stated complaint: MUST BE ADMITTED DUE TO ANCHOR Other details as noted in HPI Comment: All other systems reviewed and negative Psychiatric: depression. denies: auditory hallucinations, visual hallucinat ions, homicidal thoughts, suicidal thoughts ED Past Medical Hx - Past Medical History Previous Medical History?: Yes Hx Renal Disease: No Hx Arthritis: No Hx Seizures: Yes Hx Psychiatric Treatment: Yes (Depression w/ SI) Hx COPD: Yes (Chronic Bronchitis) Hx Dementia: Yes Additional medical history: HERINATED DISC/ CYSTITS, IBS, MENGINITIS, FX SKULL A CHILD HEP A&B, Crushed Right Shoulder - Surgical History Past Surgical History?: Yes Hx Cholecystectomy: No Hx Appendectomy: No Additional Surgical History: HYSTO/ SHOULDER REPLACEMENT/ BILATERAL MASTECTOMY - Social History Smoking Status: Current Every Day Smoker - Medications Home Medications: Home Medications Medication Instructions Recorded Confirmed Last Taken Type Cyclobenzaprine [Flexeril 10 MG 5 mg PO DAILY PRN 12/18/20 12/18/20 Unknown History TAB] Mirtazapine [Remeron 15mg TAB] 7.5 mg PO QHS #15 tablet 12/21/20 Unknown Rx Nicotine [Habitrol] 14 mg TD QDAY #30 patch 12/21/20 Unknown Rx Ciprofloxacin HCl 500 mg PO BID 10 Days #14 tablet 05/02/21 Unknown Rx Clindamycin [Clindamycin CAP] 300 mg PO Q8H #21 cap 05/02/21 Unknown Rx Ondansetron [Zofran Odt] 4 mg PO Q8HR PRN #14 tab.rapdis 05/02/21 Unknown Rx traMADoL [Ultram 50 MG tab] 50 mg PO Q4HR PRN #14 tablet 05/02/[address] [Depakote Dr] 500 mg PO DAILY #30 05/03/21 Unknown Rx Meloxicam [Mobic] 7.5 mg PO DAILY PRN #30 05/03/21 Unknown Rx Mirtazapine 7.5 mg PO HS #30 05/03/21 Unknown Rx hydroCHLOROthiazide 12.5 mg PO DAILY #30 cap 05/03/21 Unknown Rx [Hydrochlorothiazide] risperiDONE [RisperDAL] 0.5 mg PO BID #60 tablet 05/03/[address] [DepaKOTE DR] 500 mg PO DAILY 30 Days #30 tablet 05/05/21 Unknown Rx Fluconazole [Diflucan TAB] 150 mg PO ONCE 1 Days tablet 05/05/21 Unknown Rx Mirtazapine [Remeron] 15 mg PO QHS 30 Days #15 tablet 05/05/21 Unknown Rx Sulfamethoxazole/Trimethoprim 1 each PO BID #14 tablet 05/05/21 Unknown Rx [Bactrim DS TAB] risperiDONE [RisperDAL] 0.5 mg PO QHS 30 Days #30 tablet 05/05/21 Unknown Rx ED Physical Exam - General Limitations: No Limitations General appearance: alert, in no apparent distress - Head Head exam: Present: atraumatic, normocephalic - Eye Eye exam: Present: normal appearance, EOMI - ENT ENT exam: Present: mucous membranes moist - Neck Neck exam: Present: normal inspection - Respiratory Respiratory exam: Present: normal lung sounds bilaterally. Absent: respiratory distress - Cardiovascular Cardiovascular Exam: Present: regular rate, normal rhythm - GI/Abdominal GI/Abdominal exam: Present: soft. Absent: distended, tenderness - Extremities Exam Extremities exam: Present: normal inspection - Neurological Exam Neurological exam: Present: alert, oriented X3 - Psychiatric Psychiatric exam: Present: normal affect, normal mood, other (Disorganized speech, it is unclear if patient's story about her cat is true or if patient is delusional) - Skin Skin exam: Present: warm, dry, intact, normal color ED Course Vital Signs 05/04/21 05/04/21 05/04/21 16:58 17:31 20:12 Temperature 99.4 F 99.3 F 97.8 F Pulse Rate 105 H 101 H 84 Respiratory 16 18 18 Rate Blood Pressure 107/63 110/71 98/56 [Left] O2 Sat by Pulse 100 95 96 Oximetry 05/04/21 05/05/21 05/05/21 20:13 07:44 09:14 Temperature 98 F Pulse Rate 80 Respiratory 18 Rate Blood Pressure 117/68 [Left] O2 Sat by Pulse 96 100 100 Oximetry 05/05/21 05/05/21 05/06/21 20:05 20:40 02:36 Temperature 99.0 F 98.9 F Pulse Rate 95 H 80 Respiratory 18 16 Rate Blood Pressure 131/75 125/66 [Left] O2 Sat by Pulse 99 97 95 Oximetry ED Medical Decision Making - Lab Data Result diagrams: 05/04/21 18:30 05/04/21 18:30 Critical care attestation.: If time is entered above; I have spent that time in minutes in the direct care of this critically ill patient, excluding procedure time. ED Disposition Clinical Impression: UTI (urinary tract infection), Wound of foot, Cellulitis of right foot, Anxiety, Yeast vaginitis Disposition: 01 HOME / SELF CARE / HOMELESS Is pt being admited?: No Condition: Stable Instructions: Cellulitis, Adult, Vaginal Yeast Infection, Adult, Urinary Tract Infection, Adult, [id number], Wound Care, Adult Additional Instructions: Take the medication as prescribed. Follow-up with your doctor or doctor/clinic provided. Return if symptoms worsen as indicated by your discharge instructions. OUTPATIENT MENTAL HEALTH OFFICES [facility]: [address] [place] [address] [facility]: [address] [place] [address] [phone] Ashvin Arce MD [address], [place] [facility] Crisis Line: Suicide Prevention Line: Emergency: 911 Prescriptions: Mirtazapine [Remeron] 15 mg PO QHS 30 Days #15 tablet risperiDONE [RisperDAL] 0.5 mg PO QHS 30 Days #30 tablet Sulfamethoxazole/Trimethoprim [Bactrim DS TAB] 1 each PO BID #[address] [DepaKOTE DR] 500 mg PO DAILY 30 Days #30 tablet Fluconazole [Diflucan TAB] 150 mg PO ONCE 1 Days tablet Referrals: PRIMARY MD BJ [Primary Care Provider] - 3-5 Days MARGARITA PERDOMO MD [Staff Physician] - 3-5 Days
[2021-05-04 18:53] LABS: Basophils # (Auto) 0.1 K/mm3 (0.0-0.1); Basophils % (Auto) 0.7 % (0.0-1.8); Eosinophils % (Auto) 0.3 % (0.0-4.3); Hematocrit 34.6 % (30.3-42.9); Hemoglobin 11.8 gm/dl (10.1-14.3); Lymphocytes # (Auto) 1.3 K/mm3 (1.2-5.4); Lymphocytes % (Auto) 13.8 % (13.4-35.0); Mean Corpuscular HGB Conc 34 % (30-34); Mean Corpuscular Volume 93 fl (79-97); Monocytes # (Auto) 0.7 K/mm3 (0.0-0.8); Monocytes % (Auto) 7.7 % (0.0-7.3); Platelet Count 303 K/mm3 (140-440); Red Blood Count 3.73 M/mm3 (3.65-5.03); Red Cell Distribution Width 13.7 % (13.2-15.2)
[2021-05-04 19:16] LABS: Blood Urea Nitrogen 11 mg/dL (7-17); Calcium 9.1 mg/dL (8.4-10.2); Hemolysis Index 2
[2021-05-04 19:30] LABS: BUN/Creatinine Ratio 16
[2021-05-05 06:56] LABS: Amphetamine Screen,Urine Negative; Benzodiazepines Screen,Urine Negative; Cannabinoid Screen,Urine Negative; Cocaine Screen,Urine Negative; Methadone Screen,Urine Negative; Opiate Screen,Urine Negative
[2021-05-05 07:01] LABS: Bacteria,Urine 1+ /HPF (Negative); Bilirubin,Urine NEG (Negative); Blood,Urine SM (Negative); Color,Urine Yellow (Yellow); Mucus,Urine FEW /HPF; Protein,Urine <15 mg/dL mg/dL (Negative)
[2021-05-05 08:29] LABS: WBC,Urine > 182.0 /HPF (0.0-6.0)
--- NOTE | 2021-05-05 10:44 | Consultation ---
History of Present Illness - Reason for Consult Consult date: 05/05/21 Reason for consult: mental health evaluation - History of Present Psychiatric Illness Per ED Note:70-year-old female, history of dementia, anxiety, depression, breast cancer, chronic back pain, presents to ED for mental health evaluation. Patient states she needs to be checked out because she is overwhelmed with everything that has been going on. Patient reports she witnessed the killing of her 3 cats. States they were in a hot tub that was filled with bleach which caused all of the hair to fall off of the cats. Patient states she is pretty traumatized by the site of this and has been quite depressed. Patient denies any suicidal ideations. Patient's thought process is somewhat disorganized. Laura Suarez is a 70 year old female with history of Anxiety, and Depression. In my interview with the patient, she is calm. The patient states that she came to the ED for her right leg pain from a fall about a month ago. The patient reports being homeless and has been of psychotropic medications. The patient denies suicidal/homicidal ideation and denies hallucinations. The patient was seen by Case Management to sort her living situation. PAST PSYCHIATRIC HISTORY: Diagnoses: Anxiety, Depression Suicide attempts or Self-harm behavior: Denies Prior psychiatric hospitalizations: Yes Substance Abuse history: Alcohol, Cocaine Previous psychiatric medications tried: Prozac Outpatient treatment:Yes PAST MEDICAL HISTORY: None reported or document Family Psychiatric History: None reported or documented SOCIAL HISTORY Marital Status:Single Living Arrangements: Lives with brother Employment Status:retired Access to guns/weapons: Denies Education:GED History of Abuse:No Legal History: Denies REVIEW OF SYSTEMS Constitutional: Negative for weight loss ENT: Negative for stridor Respiratory: Negative for cough or hemoptysis All other systems reviewed and are negative MENTAL STATUS EXAMINATION General Appearance and Behavior: Age appropriate, good hygiene, wearing appropriate clothes. Cooperation: cooperative Psychomotor Behavior: Psychomotor normal Mood:"OK" Affect and affective range: congruent with stated mood Thought Process: Goal Directed Thought Content: Not Suicidal Speech: Normal volume, Regular rate and rhythm, Suicidal Ideation:Denies Homicidal Ideation: Denies Hallucinations: Denies Delusions: None elicited Impulse Control: Unimpaired Insight and Judgment: Limited, good judgment Memory: Abnormal Attention: Distractible Orientation: alert and oriented Assessment and Plan (1) Anxiety disorder, Unspecified- F41.9 Current Visit: Yes Status: Acute Continue home medications Continue home medication The patient to comply with previously prescribed medications Risks, benefits and alternatives of medications discussed with the patient, questions answered and consent obtained from patient. PSYCHOTHERAPY: Supportive psychotherapy provided MEDICAL: Per primary team DELIRIUM PRECAUTIONS: Please re-orient patient frequently, keep lights on during the day, and minimize benzodiazepines and opiates as these medications could worsen patient's confusion. [employer] INSPECTOR: Defer to primary DISPOSITION:Do not recommend acute inpatient psychiatric hospitalization at this time. FOLLOW-UP: Will sign off. Post hospital care: primary care provider, psychiatric provider Case staffed with Dr. Head Medications and Allergies Medications and Allergies Allergies Allergy/AdvReac Type Severity Reaction Status Date / Time ketorolac [From Toradol] Allergy Hives Verified 05/03/21 00:25 loracarbef [From Lorabid] Allergy Hives Verified 05/03/21 00:25 pentazocine [From Talwin] Allergy Hives Verified 05/03/21 00:25 Home Medications Medication Instructions Recorded Confirmed Last Taken Type Cyclobenzaprine [Flexeril 10 MG 5 mg PO DAILY PRN 12/18/20 12/18/20 Unknown History TAB] Mirtazapine [Remeron 15mg TAB] 7.5 mg PO QHS #15 tablet 12/21/20 Unknown Rx Nicotine [Habitrol] 14 mg TD QDAY #30 patch 12/21/20 Unknown Rx Ciprofloxacin HCl 500 mg PO BID 10 Days #14 tablet 05/02/21 Unknown Rx Clindamycin [Clindamycin CAP] 300 mg PO Q8H #21 cap 05/02/21 Unknown Rx Ondansetron [Zofran Odt] 4 mg PO Q8HR PRN #14 tab.rapdis 05/02/21 Unknown Rx traMADoL [Ultram 50 MG tab] 50 mg PO Q4HR PRN #14 tablet 05/02/[address] [Tato Olmos] 500 mg PO DAILY #30 05/03/21 Unknown Rx Meloxicam [Mobic] 7.5 mg PO DAILY PRN #30 05/03/21 Unknown Rx Mirtazapine 7.5 mg PO HS #30 05/03/21 Unknown Rx hydroCHLOROthiazide 12.5 mg PO DAILY #30 cap 05/03/21 Unknown Rx [Hydrochlorothiazide] risperiDONE [RisperDAL] 0.5 mg PO BID #60 tablet 05/03/21 Unknown Rx Mental Status Exam - Vital signs Last Vital Signs Temp 98 F 05/05/21 07:44 Pulse 80 05/05/21 07:44 Resp 18 05/05/21 07:44 BP 117/68 05/05/21 07:44 Pulse Ox 100 05/05/21 09:14 Results Result Diagrams: 05/04/21 18:30 05/04/21 18:30 Abnormal lab results 05/04/21 05/04/21 05/04/21 Range/Units 18:30 18:30 18:30 [place] % (Auto) 7.7 H (0.0-7.3) % Seg Neutrophils % 77.5 H (40.0-70.0) % Glucose 176 H (65-100) mg/dL Urine WBC (Auto) (0.0-6.0) /HPF Salicylates < 0.3 L (2.8-20.0) mg/dL Acetaminophen (10.0-30.0) ug/mL 05/04/21 05/05/21 Range/Units 18:30 Unknown [place] % (Auto) (0.0-7.3) % Seg Neutrophils % (40.0-70.0) % Glucose (65-100) mg/dL Urine WBC (Auto) > 182.0 H (0.0-6.0) /HPF Salicylates (2.8-20.0) mg/dL Acetaminophen 5.0 L (10.0-30.0) ug/mL All other labs normal.
[2021-05-05] MEDS ORDERED: BACITRACIN/POLYMYXIN B OINT 28.35 GM TP ONE (11:19)
[2021-05-05] MEDS ORDERED: SULFAMETHOXAZOLE/TRIMETHOPRIM 800/160MG DS TAB PO ONE (11:20)
[2021-05-05] MEDS ORDERED: BACITRACIN ZINC OINT 28.4 GM TP ONE (11:24)
--- NOTE | 2021-05-05 11:26 | Emergency Department Report ---
Blank Doc - Documentation Documentation: 70-year-old female cleared by psych for discharge diagnosis of anxiety disorder. No events overnight. Vital signs in normal range. Patient has chronic appearing wounds to bilateral posterior foot at Achilles tender area. Patient states wounds were caused by her ill fitting tennis shoes. Right ankle swelling and warmth to wound area with mild erythema noted. No drainage. Full range of motion. Cellulitis suspect. Labs reveal UTI. Patient also endorses mild discharge. Positive yeast detected on UA Patient provided Bactrim for both cellulitis and UTI. Nursing instructed to place wound dressing with bacitracin/antibiotic ointment She will be discharged on Bactrim and Diflucan Refer to psychiatric note for details of psychiatric diagnosis and discharge meds
[2021-05-05] MEDS ORDERED: traMADol 50 MG TAB PO ONE (20:43)
[2021-05-06 03:07] VITALS: BP 125/66
== END 2021-05-06 09:24 | disposition home or self-care (01) ==
LOC: EEVIPCON 16:53 → ED 16:53
DX: F41.9 Anxiety disorder, unspecified (principal); N39.0 Urinary tract infection, site not specified; B37.3 Candidiasis of vulva and vagina; L03.116 Cellulitis of left lower limb; L03.115 Cellulitis of right lower limb; S80.922A Unspecified superficial injury of left lower leg, initial encounter; S80.921A Unspecified superficial injury of right lower leg, initial encounter; Z90.49 Acquired absence of other specified parts of digestive tract; F17.200 Nicotine dependence, unspecified, uncomplicated; Z88.5 Allergy status to narcotic agent; Z88.8 Allergy status to other drugs, medicaments and biological substances; X58.XXXA Exposure to other specified factors, initial encounter; Y93.9 Activity, unspecified; Y92.89 Other specified places as the place of occurrence of the external cause; Y99.8 Other external cause status
CPT/HCPCS: 36415; 80048; 80307; 80320; 81001; 85025; 99284; G0480

== ENCOUNTER 2021-05-08 08:33 | Emergency (ER) | payer MEDICARE ==
[2021-05-08 08:50] VITALS: BP 130/58
[2021-05-08] MEDS ORDERED: SULFAMETHOXAZOLE/TRIMETHOPRIM 800/160MG DS TAB PO ONE (08:58)
--- NOTE | 2021-05-08 08:58 | Event Note ---
ED Screening Note Date of service: 05/08/21 Time: 08:54 ED Screening Note: 70-year-old female was recently discharged on 05/05/2021 diagnosis of anxiety disorder and cellulitis to her lower legs. Patient comes in stating that she does not have money to fill her prescriptions. She does report she purchased some new tennis shoes that will prevent rubbing of her wound and Band- Aids and antibiotic cream. Patient comes in stating she is homeless will not get her money until Sunday and has nowhere to stay. This initial assessment/diagnostic orders/clinical plan/treatment(s) is/are subject to change based on patients health status, clinical progression and re- assessment by fellow clinical providers in the ED. Further treatment and workup at subsequent clinical providers discretion. Patient/guardian urged not to elope from the ED as their condition may be serious if not clinically assessed and managed. Initial orders include:
--- NOTE | 2021-05-08 09:17 | Emergency Department Report ---
ED Medical Clearance HPI - General Chief complaint: Pain General Stated complaint: IN PAIN NO MEDICINE Source: patient Mode of arrival: Ambulatory - History of Present Illness Initial comments: The patient was evaluated in the emergency department for symptoms described in the history of present illness. He/she was evaluated in the context of the global COVID-19 pandemic, which necessitated consideration that the patient might be at risk for infection with the virus that causes COVID-19. Institutional protocols and algorithms that pertain to the evaluation of patients at risk for COVID-19 are in a state of rapid change based on information released by regulatory bodies including the CDC and federal and state organizations. These policies and algorithms were followed during the patient's care in the emergency department. Please note that these policies, procedures and recommendations changed on a rapid basis. 70-year-old female was recently discharged on 05/05/2021 diagnosis of anxiety disorder ,uti and cellulitis to her lower legs. Patient comes in stating that she does not have money to fill her prescriptions. She does report she purchased some new tennis shoes that will prevent rubbing of her wound and Band-Aids and antibiotic cream. Patient comes in stating she is homeless will not get her money until Sunday and has nowhere to stay. Alledged Intoxication: No Compliant with Home Medications: No Traumatic Symptoms: denies traumatic injury Associated Symptoms: other (Chronic pain) Treatments Prior to Arrival: bandages, medication (Topical antibiotics) Home medications: Home Medications Medication Instructions Recorded Confirmed Last Taken Cyclobenzaprine [Flexeril 10 MG 5 mg PO DAILY PRN 12/18/20 12/18/20 Unknown TAB] Previous Rx's Medication Instructions Recorded Last Taken Type Mirtazapine [Remeron 15mg TAB] 7.5 mg PO QHS #15 tablet 12/21/20 Unknown Rx Nicotine [Habitrol] 14 mg TD QDAY #30 patch 12/21/20 Unknown Rx Ciprofloxacin HCl 500 mg PO BID 10 Days #14 tablet 05/02/21 Unknown Rx Clindamycin [Clindamycin CAP] 300 mg PO Q8H #21 cap 05/02/21 Unknown Rx Ondansetron [Zofran Odt] 4 mg PO Q8HR PRN #14 tab.rapdis 05/02/21 Unknown Rx traMADoL [Ultram 50 MG tab] 50 mg PO Q4HR PRN #14 tablet 05/02/[address] [Tato Olmos] 500 mg PO DAILY #30 05/03/21 Unknown Rx Meloxicam [Mobic] 7.5 mg PO DAILY PRN #30 05/03/21 Unknown Rx Mirtazapine 7.5 mg PO HS #30 05/03/21 Unknown Rx hydroCHLOROthiazide 12.5 mg PO DAILY #30 cap 05/03/21 Unknown Rx [Hydrochlorothiazide] risperiDONE [RisperDAL] 0.5 mg PO BID #60 tablet 05/03/21 Unknown Rx Divalproex [Tato OLMOS] 500 mg PO DAILY 30 Days #30 tablet 05/05/21 Unknown Rx Fluconazole [Diflucan TAB] 150 mg PO ONCE 1 Days tablet 05/05/21 Unknown Rx Mirtazapine [Remeron] 15 mg PO QHS 30 Days #15 tablet 05/05/21 Unknown Rx Sulfamethoxazole/Trimethoprim 1 each PO BID #14 tablet 05/05/21 Unknown Rx [Bactrim DS TAB] risperiDONE [RisperDAL] 0.5 mg PO QHS 30 Days #30 tablet 05/05/21 Unknown Rx Allergies/Adverse reactions: Allergies Allergy/AdvReac Type Severity Reaction Status Date / Time ketorolac [From Toradol] Allergy Hives Verified 05/03/21 00:25 loracarbef [From Lorabid] Allergy Hives Verified 05/03/21 00:25 pentazocine [From Talwin] Allergy Hives Verified 05/03/21 00:25 ED Review of Systems ROS: Stated complaint: IN PAIN NO MEDICINE Other details as noted in HPI Comment: All other systems reviewed and negative ED Past Medical Hx - Past Medical History Hx Renal Disease: No Hx Arthritis: No Hx Seizures: Yes Hx Psychiatric Treatment: Yes (Depression w/ SI) Hx COPD: Yes (Chronic Bronchitis) Hx Dementia: Yes Additional medical history: HERINATED DISC/ CYSTITS, IBS, MENGINITIS, FX SKULL A CHILD HEP A&B, Crushed Right Shoulder - Surgical History Hx Cholecystectomy: No Hx Appendectomy: No Additional Surgical History: HYSTO/ SHOULDER REPLACEMENT/ BILATERAL MASTECTOMY - Social History Smoking Status: Unknown if ever smoked - Medications Home Medications: Home Medications Medication Instructions Recorded Confirmed Last Taken Type Cyclobenzaprine [Flexeril 10 MG 5 mg PO DAILY PRN 12/18/20 12/18/20 Unknown History TAB] Mirtazapine [Remeron 15mg TAB] 7.5 mg PO QHS #15 tablet 12/21/20 Unknown Rx Nicotine [Habitrol] 14 mg TD QDAY #30 patch 12/21/20 Unknown Rx Ciprofloxacin HCl 500 mg PO BID 10 Days #14 tablet 05/02/21 Unknown Rx Clindamycin [Clindamycin CAP] 300 mg PO Q8H #21 cap 05/02/21 Unknown Rx Ondansetron [Zofran Odt] 4 mg PO Q8HR PRN #14 tab.rapdis 05/02/21 Unknown Rx traMADoL [Ultram 50 MG tab] 50 mg PO Q4HR PRN #14 tablet 05/02/[address] [Tato Olmos] 500 mg PO DAILY #30 05/03/21 Unknown Rx Meloxicam [Mobic] 7.5 mg PO DAILY PRN #30 05/03/21 Unknown Rx Mirtazapine 7.5 mg PO HS #30 05/03/21 Unknown Rx hydroCHLOROthiazide 12.5 mg PO DAILY #30 cap 05/03/21 Unknown Rx [Hydrochlorothiazide] risperiDONE [RisperDAL] 0.5 mg PO BID #60 tablet 05/03/[address] [Tato OLMOS] 500 mg PO DAILY 30 Days #30 tablet 05/05/21 Unknown Rx Fluconazole [Diflucan TAB] 150 mg PO ONCE 1 Days tablet 05/05/21 Unknown Rx Mirtazapine [Remeron] 15 mg PO QHS 30 Days #15 tablet 05/05/21 Unknown Rx Sulfamethoxazole/Trimethoprim 1 each PO BID #14 tablet 05/05/21 Unknown Rx [Bactrim DS TAB] risperiDONE [RisperDAL] 0.5 mg PO QHS 30 Days #30 tablet 05/05/21 Unknown Rx ED Physical Exam - General Limitations: No Limitations General appearance: alert, in no apparent distress - Head Head exam: Present: atraumatic, normocephalic - Eye Eye exam: Present: normal appearance - ENT ENT exam: Present: mucous membranes moist - Respiratory Respiratory exam: Absent: respiratory distress, accessory muscle use - Cardiovascular Cardiovascular Exam: Present: regular rate - Extremities Exam Extremities exam: Present: full ROM, pedal edema - Back Exam Back exam: Present: normal inspection - Neurological Exam Neurological exam: Present: alert, oriented X3, normal gait - Psychiatric Psychiatric exam: Present: agitated, anxious - Skin Skin exam: Present: warm, dry, intact, normal color. Absent: rash ED Course Vital Signs 05/08/21 08:49 Temperature 97.9 F Pulse Rate 100 H Respiratory 18 Rate Blood Pressure 130/58 O2 Sat by Pulse 97 Oximetry ED Medical Decision Making - Medical Decision Making 70-year-old female was recently discharged on 05/05/2021 diagnosis of anxiety disorder ,uti and cellulitis to her lower legs. Patient comes in stating that she does not have money to fill her prescriptions. She does report she purchased some new tennis shoes that will prevent rubbing of her wound and Band-Aids and antibiotic cream. Patient comes in stating she is homeless will not get her money until Sunday and has nowhere to stay. Patient is given a dose of Bactrim double strength. Patient is instructed to fill her prescription. ED Disposition Clinical Impression: Anxiety, Generalized anxiety disorder, UTI (urinary tract infection), Cellulitis of right foot Disposition: 01 HOME / SELF CARE / HOMELESS Is pt being admited?: No Does the pt Need Aspirin: No Condition: Stable Additional Instructions: Go fill your prescriptions to prevent your symptoms getting worse. Referrals: [facility] [Provider Group] - [facility] Days [facility] [Outside] - 3-5 Days [facility] [Outside] - 3-5 Days
== END 2021-05-08 10:10 | disposition home or self-care (01) ==
LOC: ED 08:33
DX: L03.116 Cellulitis of left lower limb (principal); F41.1 Generalized anxiety disorder; N39.0 Urinary tract infection, site not specified; R56.9 Unspecified convulsions; F32.9 Major depressive disorder, single episode, unspecified; F03.90 Unspecified dementia, unspecified severity, without behavioral disturbance, psychotic disturbance, mood disturbance, and anxiety; J42 Unspecified chronic bronchitis; Z98.890 Other specified postprocedural states; Z88.5 Allergy status to narcotic agent; Z88.6 Allergy status to analgesic agent; Z88.8 Allergy status to other drugs, medicaments and biological substances
CPT/HCPCS: 99282